=== PATIENT | female | born 1940 | race Caucasian/White ===

== ENCOUNTER 2016-03-09 21:50 | Inpatient (IN) | payer MEDICARE, BC ==
[2016-03-09] MEDS ORDERED: MAGNESIUM SULFATE-D5W PMX 1 GM in DEXTROSE/WATER 1 100ML.BAG IVPB STA (21:53)
[2016-03-09] MEDS ORDERED: IPRATROPIUM 0.5 MG/2.5 ML NEBU INHALATION STA (21:53)
[2016-03-09] MEDS ORDERED: SODIUM CHLORIDE 0.9% 1,000 ML IV STA (21:53)
[2016-03-09] MEDS ORDERED: EPINEPHrine 1 MG/ML 1 ML AMP SQ STA (21:53)
[2016-03-09] MEDS ORDERED: ALBUTEROL NEBULIZED 2.5 MG/3 ML INHALATION STA (21:53)
[2016-03-09] MEDS ORDERED: LORazepam 2 MG/ML SYRINGE IV STA (22:17)
[2016-03-09] MEDS: methylPREDNISolone SOD SUCCI 125 MG/2 ML VIAL IV STA ×2 (22:20→22:24)
--- NOTE | 2016-03-09 22:33 | XR ---
EXAMINATION TYPE: XR chest 1V portable DATE OF EXAM: 03/09/2016 10:19 PM COMPARISON: 01/23/2015 HISTORY: COPD, pneumonia TECHNIQUE: Single frontal view of the chest is obtained. FINDINGS: There is pulmonary hyperinflation and flattening of the diaphragm. There is no heart failu re nor confluent pneumonic infiltrate. There are no hilar masses. Thoracic aorta is atheromatous. The re is a tiny right pleural effusion. IMPRESSION: Small right pleural effusion is smaller than old exam. COPD. No evidence of bronchopneu monia.
[2016-03-09 22:34] LABS: Basophils # (A) 0.1 k/uL (0-0.2); Basophils % (A) 2 %; CH 31.5; CHCM 32.3; Eosinophils % (A) 1 %; HCT 44.9 % (34.0-46.0); HDW 2.37; HGB 14.4 gm/dL (11.4-16.0); Luc # (Auto) 0.21; Luc % (Auto) 3; Lymphocytes # (A) 1.7 k/uL (1.0-4.8); Lymphocytes % (A) 21 %; MCH 31.3 pg (25.0-35.0); MCV 97.9 fL (80.0-100.0); Mean Platelet Volume 8.4; Monocytes # (A) 0.8 k/uL (0-1.0); Monocytes % (A) 10 %; Neutrophils # (A) 5.5 k/uL (1.3-7.7); Neutrophils % (A) 65 %; RBC 4.59 m/uL (3.80-5.40); RDW 14.9 % (11.5-15.5); WBC 8.5 k/uL (3.8-10.6)
[2016-03-09 22:47] LABS: ABG Base Excess 7.8 mmol/L; ABG HCO3 34 mmol/L (21-25); ABG PCO2 64 mmHg (35-45); ABG PH 7.34 (7.35-7.45); ABG PO2 259 mmHg (83-108); ABG TCO2 36 mmol/L (19-24)
[2016-03-09 22:58] LABS: ALT 35 U/L (9-52); AST 36 U/L (14-36); Alkaline Phosphatase 57 U/L (38-126); Anion Gap 6 mmol/L; Blood Urea Nitrogen 20 mg/dL (7-17); Calcium 8.1 mg/dL (8.4-10.2); Carbon Dioxide 34 mmol/L (22-30); Chloride 92 mmol/L (98-107); Creatine Kinase 80 U/L (30-135); Glucose 120 mg/dL (74-99); Non-African American GFR(MDRD) >60 (>60 ml/min/1.73 sqM); Sodium 132 mmol/L (137-145); Total Bilirubin 0.4 mg/dL (0.2-1.3); Total Protein 6.2 g/dL (6.3-8.2)
[2016-03-09 23:10] LABS: Troponin I <0.012 ng/mL (0.000-0.034)
[2016-03-09 23:13] LABS: Prothrombin Time 10.3 sec (9.0-12.0)
[2016-03-09 23:17] LABS: Partial Thromboplastin Time 20.7 sec (22.0-30.0)
[2016-03-09 23:25] LABS: Creatine Kinase MB 5.9 ng/mL (0.0-2.4)
[2016-03-09 23:37] LABS: Potassium 4.6 mmol/L (3.5-5.1)
[2016-03-10] MEDS ORDERED: RX INFO: IV CONTRAST WAS GIVEN 1 EACH MISC MISCELLANE PRN (00:25)
[2016-03-10] MEDS ORDERED: SODIUM CHLORIDE 0.9% 500 ML IV ONE (00:37)
--- NOTE | 2016-03-10 00:37 | ED ---
SOB HPI - General Chief Complaint: Shortness of Breath Stated Complaint: EPIFANIO Time Seen by Provider: 03/09/16 21:53 Source: patient Mode of arrival: EMS Limitations: no limitations - History of Present Illness Initial Comments: Came in by ambulance, severe shortness of breath when she came in she couldn't even complete a sentence was retracting pretty severely using accessory muscles will put her on BiPAP at that helped a great deal she does have a history of COPD, she had the BiPAP on right away. Denies any chest pain does complain about some pain with deep breaths - Related Data Home Medications Medication Instructions Recorded Confirmed Atorvastatin [Lipitor] 10 mg PO HS 06/24/13 01/18/15 Omeprazole [PriLOSEC] 20 mg PO AC-BRKFST 06/24/13 01/18/15 LORazepam [Ativan] 0.5 mg PO BID PRN 04/20/14 01/18/15 Albuterol Sulfate [Proair Hfa] 2 puff INHALATION RT-Q6H PRN 01/18/15 01/18/15 Lisinopril [Zestril] 10 mg PO DAILY 01/18/15 01/18/15 Metoprolol Succinate [Toprol XL] 25 mg PO DAILY 01/18/15 01/18/15 PARoxetine HCL [Paxil] 20 mg PO BID 01/18/15 01/18/15 Phenazopyridine [Pyridium] 200 mg PO TID 01/18/15 01/18/15 Previous Rx's Medication Instructions Recorded Ipratropium-Albuterol Nebulize 3 ml INHALATION RT-QID PRN #100 09/06/14 [Duoneb 0.5 mg-3 mg/3 ml Soln] ampul.neb Levofloxacin [Levaquin] 500 mg PO DAILY #7 tab 01/23/15 predniSONE 10 mg PO DIRECTED #24 tab 01/23/15 Allergies Allergy/AdvReac Type Severity Reaction Status Date / Time Metronidazole HCl Allergy Severe Unknown Verified 03/09/16 21:58 [From Flagyl] Sulfa (Sulfonamide Allergy Severe Unknown Verified 03/09/16 21:58 Antibiotics) Review of Systems ROS Statement: Those systems with pertinent positive or pertinent negative responses have been documented in the HPI. ROS Other: All systems not noted in ROS Statement are negative. Past Medical History Past Medical History: Asthma, Cancer, Chest Pain / Angina, Heart Failure, COPD, GERD/Reflux, Hyperlipidemia, Hypertension, Osteoarthritis (OA), Pneumonia, Renal Disease, Sleep Apnea/CPAP/BIPAP Additional Past Medical History / Comment(s): C Diff IN 2011, Emphysema, bronchitis, bladder CA-CHEMO 2004, only one kidney, anxiety, PVD, DIVERTICULITIS , IBS, RENAL FAILURE, UTI,OSTEOPOROSIS,HOME 02 2 LITERS AT NIGHT. AORTIC ANEURYSM History of Any Multi-Drug Resistant Organisms: None Reported Past Surgical History: Tubal Ligation Additional Past Surgical History / Comment(s): D&C, toe surgery JANELLE FEET, colonoscopy, EGD, bronchoscopy, cataracts janelle, procedure for bladder sx. 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 Eye: Pupils are equal, round and reactive to light, extra-ocular movements are intact; there is normal conjunctiva bilaterally. Ears, nose, mouth and throat: There are moist mucous membranes and no oral lesions. Neck: The neck is supple, there is no tenderness Cardiovascular: It's irregularly irregular Respiratory: To auscultation bilateral, exam consistent with a severe COPD Gastrointestinal: Soft, non-distended, non-tender abdomen without masses or organomegaly noted. There is no rebound or guarding present. Bowel sounds are unremarkable. Back: There is no tenderness to palpation in the midline. There is no obvious deformity. Musculoskeletal: Normal ROM, no tenderness, There is no pedal edema. There is no calf tenderness or swelling. No cords were appreciated. Neurological: CN II-XII intact, Cranial nerves III through XII are intact. There are no obvious motor or sensory deficits. Coordination appears grossly intact. Speech is normal. Psychiatric: Cooperative. Limitations: no limitations Course Vital Signs 03/09/16 03/09/16 03/09/16 21:50 22:12 22:19 Temperature 97.6 F Pulse Rate 93 100 94 Respiratory 34 H 24 Rate Blood Pressure 213/100 155/81 O2 Sat by Pulse 94 L 100 Oximetry 03/09/16 03/09/16 03/09/16 22:45 22:48 23:31 Temperature Pulse Rate 104 H 106 H 97 Respiratory 18 Rate Blood Pressure 139/82 O2 Sat by Pulse 100 Oximetry 03/10/16 00:15 Temperature Pulse Rate 102 H Respiratory 20 Rate Blood Pressure 85/63 O2 Sat by Pulse 100 Oximetry QTc is at her atrial flutter ventricular rate is 95 VT interval, QRS duration 76 QT/QTc is 326/409, noticed some ST depression in lead 2 and 3 T-wave flattening in aVL, no ST elevation noticed in any of the leads Medical Decision Making - Lab Data Result diagrams: 03/09/16 22:04 03/09/16 22:04 Lab Results 03/09/16 03/09/16 03/09/16 Range/Units 22:04 22:04 22:04 WBC 8.5 (3.8-10.6) k/uL RBC 4.59 (3.80-5.40) m/uL Hgb 14.4 (11.4-16.0) gm/dL Hct 44.9 (34.0-46.0) % MCV 97.9 (80.0-100.0) fL MCH 31.3 (25.0-35.0) pg MCHC 32.0 (31.0-37.0) g/dL RDW 14.9 (11.5-15.5) % Plt Count 215 (150-450) k/uL Neutrophils % 65 % Lymphocytes % 21 % Monocytes % 10 % Eosinophils % 1 % Basophils % 2 % Neutrophils # 5.5 (1.3-7.7) k/uL Lymphocytes # 1.7 (1.0-4.8) k/uL Monocytes # 0.8 (0-1.0) k/uL Eosinophils # 0.0 (0-0.7) k/uL Basophils # 0.1 (0-0.2) k/uL PT 10.3 (9.0-12.0) sec INR 1.0 (<1.1) APTT 20.7 L (22.0-30.0) sec D-Dimer 5.54 H (<0.60) mg/L FEU Sample Site ABG pH (7.35-7.45) ABG pCO2 (35-45) mmHg ABG pO2 (83-108) mmHg ABG HCO3 (21-25) mmol/L ABG Total CO2 (19-24) mmol/L ABG O2 Saturation (94-97) % ABG Base Excess mmol/L FiO2 % Sodium 132 L (137-145) mmol/L Potassium 4.6 (3.5-5.1) mmol/L Chloride 92 L (98-107) mmol/L Carbon Dioxide 34 H (22-30) mmol/L Anion Gap 6 mmol/L BUN 20 H (7-17) mg/dL Creatinine 0.60 (0.52-1.04) mg/dL Est GFR (MDRD) Af Amer >60 (>60 ml/min/1.73 sqM) Est GFR (MDRD) Non-Af >60 (>60 ml/min/1.73 sqM) Glucose 120 H (74-99) mg/dL Calcium 8.1 L (8.4-10.2) mg/dL Total Bilirubin 0.4 (0.2-1.3) mg/dL AST 36 (14-36) U/L ALT 35 (9-52) U/L Alkaline Phosphatase 57 (38-126) U/L Total Creatine Kinase (30-135) U/L CK-MB (CK-2) (0.0-2.4) ng/mL CK-MB (CK-2) Rel Index Troponin I (0.000-0.034) ng/mL Total Protein 6.2 L (6.3-8.2) g/dL Albumin 3.5 (3.5-5.0) g/dL 03/09/16 03/09/16 Range/Units 22:04 22:30 WBC (3.8-10.6) k/uL RBC (3.80-5.40) m/uL Hgb (11.4-16.0) gm/dL Hct (34.0-46.0) % MCV (80.0-100.0) fL MCH (25.0-35.0) pg MCHC (31.0-37.0) g/dL RDW (11.5-15.5) % Plt Count (150-450) k/uL Neutrophils % % Lymphocytes % % Monocytes % % Eosinophils % % Basophils % % Neutrophils # (1.3-7.7) k/uL Lymphocytes # (1.0-4.8) k/uL Monocytes # (0-1.0) k/uL Eosinophils # (0-0.7) k/uL Basophils # (0-0.2) k/uL PT (9.0-12.0) sec INR (<1.1) APTT (22.0-30.0) sec D-Dimer (<0.60) mg/L FEU Sample Site rbrach ABG pH 7.34 L (7.35-7.45) ABG pCO2 64 H (35-45) mmHg ABG pO2 259 H (83-108) mmHg ABG HCO3 34 H (21-25) mmol/L ABG Total CO2 36 H (19-24) mmol/L ABG O2 Saturation 100.0 H (94-97) % ABG Base Excess 7.8 mmol/L FiO2 100 % Sodium (137-145) mmol/L Potassium (3.5-5.1) mmol/L Chloride (98-107) mmol/L Carbon Dioxide (22-30) mmol/L Anion Gap mmol/L BUN (7-17) mg/dL Creatinine (0.52-1.04) mg/dL Est GFR (MDRD) Af Amer (>60 ml/min/1.73 sqM) Est GFR (MDRD) Non-Af (>60 ml/min/1.73 sqM) Glucose (74-99) mg/dL Calcium (8.4-10.2) mg/dL Total Bilirubin (0.2-1.3) mg/dL AST (14-36) U/L ALT (9-52) U/L Alkaline Phosphatase (38-126) U/L Total Creatine Kinase 80 (30-135) U/L CK-MB (CK-2) 5.9 H* (0.0-2.4) ng/mL CK-MB (CK-2) Rel Index 7.4 Troponin I <0.012 (0.000-0.034) ng/mL Total Protein (6.3-8.2) g/dL Albumin (3.5-5.0) g/dL Critical Care Time Total Critical Care Time: 50 Critical Care Time: Shouldn't was numb so severely distressed when she came in she can give us a review of system she was put on a BiPAP ABGs were done and she had steroids she had a bronchodilators and cardiopulmonary workup d-dimer is elevated she be gone for her CT angiogram and he flipped and the EKG seems to be new old home EKG and no afebrile in aVL for active distress problems did not include the she will be gone and her Lovenox 1 mg/kg every 12 for now and will continue the inhaled steroids IV steroids and short and long-acting bronchodilators Disposition Clinical Impression: Respiratory distress, COPD, severe, Hypotension, Atrial fibrillation Disposition: ADMITTED IP TO THIS HOSP Condition: Fair
[2016-03-10] MEDS ORDERED: ENOXAPARIN 40 MG/0.4 ML SYRINGE SQ STA (00:44)
[2016-03-10] MEDS ORDERED: IPRATROPIUM-ALBUTEROL 3 ML NEB INHALATION PRN ×2 (00:45→00:56)
[2016-03-10] MEDS ORDERED: methylPREDNISolone SOD SUCCI 125 MG/2 ML VIAL IV STA (00:45)
[2016-03-10] MEDS ORDERED: ALBUTEROL INHALER 60 PUFF/8 GM INHALER INHALATION PRN (00:56)
[2016-03-10] MEDS ORDERED: ALBUTEROL NEBULIZED 2.5 MG/3 ML INHALATION PRN (01:02)
[2016-03-10] MEDS: ENOXAPARIN 40 MG/0.4 ML SYRINGE SQ SCH (01:39)
--- NOTE | 2016-03-10 01:56 | CT ---
EXAMINATION TYPE: CT angio chest DATE OF EXAM: 03/10/2016 1:16 AM COMPARISON: 04/18/2012 HISTORY: elevated d-dimer R/O PE, SOB CT DLP: 571.00 mGycm Automated exposure control for dose reduction was used. CONTRAST: CTA scan of the thorax is performed with IV Contrast, patient injected with 100 mL of Omnipaque 350, pulmonary embolism protocol. There are 3-D post processed images.. FINDINGS: There is aneurysm of the thoracic aorta. Ascending aorta measures 3.7 cm. Aorta measures 4.4 cm at th e diaphragm hiatus. There is thrombus in the lower descending thoracic aorta. There is atheroscleroti c plaque. Heart size is normal. I see no filling defects in the pulmonary arteries. There is diffuse pulmonary emphysema. There is no evidence of a pulmonary mass. There is no pleural effusion. IMPRESSION: EMPHYSEMA. NO EVIDENCE OF PULMONARY EMBOLISM. MILD PULMONARY FIBROTIC CHANGES. THERE IS ANEURYSM OF T HE LOWER THORACIC AND UPPER ABDOMINAL AORTA THAT HAS INCREASED COMPARED TO OLD CT SCAN. ANEURYSM IS I NCREASED FROM APPROXIMATELY 3.6 CM TO 4.4 CM AT THE DIAPHRAGM HIATUS. THERE IS CLEARING OF PULMONARY CONSOLIDATION AND ATELECTASIS IN THE LEFT LOWER LOBE COMPARED TO OLD EXAM.
[2016-03-10] MEDS: SODIUM CHLORIDE 0.9% 1,000 ML IV SCH ×3 (04:06→20:05)
[2016-03-10] MEDS: PANTOPRAZOLE 40 MG TABLET PO SCH (06:34)
[2016-03-10] MEDS ORDERED: ALBUTEROL NEBULIZED 2.5 MG/3 ML INHALATION SCH (08:00)
[2016-03-10] MEDS ORDERED: SYMBICORT 160-4.5 MCG INHALER INHALATION SCH (08:00)
[2016-03-10] MEDS ORDERED: LEVOFLOXACIN 500 MG TAB PO SCH ×2 (09:00)
[2016-03-10] MEDS ORDERED: LISINOPRIL 10 MG TAB PO SCH (09:00)
[2016-03-10] MEDS: BUDESONIDE 0.5 MG/2 ML NEBU INHALATION SCH ×2 (09:05→21:08)
[2016-03-10] MEDS: IPRATROPIUM-ALBUTEROL 3 ML NEB INHALATION SCH ×4 (09:05→21:07)
--- NOTE | 2016-03-10 09:30 | P.CRDCN ---
History of Present Illness Consult date: 03/10/16 Requesting physician: Faby Arana Reason for Consult (text): Arrhythmia Chief complaint: Shortness of breath History of present illness: This is a 76-year-old female with history of hypertension, nicotine dependence, COPD, asthma, sleep apnea, who presented to the hospital with progressively worsening shortness of breath. Patient was given some Ativan through the night last night, currently has a BiPAP on and is quite sleepy . Most of the history was obtained from the nurse and the medical record. There was question of a brief episode of atrial fibrillation while in the emergency room, no documentation of this is our, patient has been normal sinus rhythm here for that reason a cardiology consultation was requested. EKG on admission here showed a normal sinus rhythm with nonspecific ST-T wave changes. Rhythm strips all show normal sinus rhythm as well. Chest x-ray on admission shows a small right pleural effusion. COPD. CTA of the chest reveals emphysema with no evidence of a pulmonary embolism. Pulmonary fibrotic changes are noted. There is an aneurysm of the lower thoracic and upper abdominal aorta that is increased in size as compared with the old CAT scan. Aneurysm has increased from approximately 3.6 cm to 4.4 cm at the diaphragm hiatus. Blood pressure 114 /60, heart rate in the 90s. She is 99% on BiPAP. Laboratory data, CBC normal. D-dimer 5.5. ABGs were drawn, pH 7.34, pCO2 64, pO2 259, bicarb 34, total CO2 36, oxygen saturation 100. Potassium 4.6, BUN 20, creatinine 0.6. Troponin 0.012. Past Medical History Past Medical History: Asthma, Cancer, Chest Pain / Angina, Heart Failure, COPD, GERD/Reflux, Hyperlipidemia, Hypertension, Osteoarthritis (OA), Pneumonia, Renal Disease, Sleep Apnea/CPAP/BIPAP Additional Past Medical History / Comment(s): C Diff IN 2011, Emphysema, bronchitis, bladder CA-CHEMO 2004, only one kidney, anxiety, PVD, DIVERTICULITIS , IBS, RENAL FAILURE, UTI,OSTEOPOROSIS,HOME 02 2 LITERS AT NIGHT. AORTIC ANEURYSM History of Any Multi-Drug Resistant Organisms: None Reported Past Surgical History: Tubal Ligation Additional Past Surgical History / Comment(s): D&C, toe surgery JANELLE FEET, colonoscopy, EGD, bronchoscopy, cataracts janelle, procedure for bladder sx. 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[employer] USED TO DRINK HEAVILY FOR MANY YEARS NONE NOW Past Drug Use History: None Reported - Past Family History Mother Family Medical History: Myocardial Infarction ([place]) Father Family Medical History: Myocardial Infarction ([place]) Medications and Allergies Home Medications Medication Instructions Recorded Confirmed Type Atorvastatin [Lipitor] 10 mg PO HS 06/24/13 03/10/16 History Omeprazole [PriLOSEC] 20 mg PO AC-BRKFST 06/24/13 03/10/16 History LORazepam [Ativan] 0.5 mg PO BID PRN 04/20/14 03/10/16 History Albuterol Sulfate [Proair Hfa] 2 puff INHALATION RT-Q6H PRN 01/18/15 03/10/16 History Lisinopril [Zestril] 10 mg PO DAILY 01/18/15 03/10/16 History Metoprolol Succinate [Toprol XL] 25 mg PO DAILY 01/18/15 03/10/16 History PARoxetine HCL [Paxil] 20 mg PO BID 01/18/15 03/10/16 History Allergies Allergy/AdvReac Type Severity Reaction Status Date / Time Metronidazole HCl Allergy Severe Unknown Verified 03/09/16 21:58 [From Flagyl] Sulfa (Sulfonamide Allergy Severe Unknown Verified 03/09/16 21:58 Antibiotics) Physical Exam Vitals: Vital Signs Temp Pulse Pulse Resp BP BP Pulse Ox 03/10/16 09:05 86 03/10/16 04:00 94 16 114/62 99 03/10/16 02:10 96.6 F L 93 16 108/76 99 03/10/16 02:01 92 03/10/16 01:55 95 03/10/16 01:45 97 16 109/55 100 03/10/16 01:18 96.6 F L 93 108/76 99 Intake and Output 03/09/16 03/10/16 03/10/16 22:59 06:59 14:59 Intake Total 300 Balance 300 Intake: IV 300 Sodium Chloride 0.9% 1, 300 000 ml @ 100 mls/hr IV . Q10H LAURA Rx#:[id number] Other: Weight 40 kg PHYSICAL EXAMINATION: HEENT: Head is atraumatic, normocephalic. Pupils equal, round. Neck is supple. There is no elevated jugular venous pressure. HEART EXAMINATION: Heart S1, S2 normal. No murmur or gallop heard. CHEST EXAMINATION: Lungs reveal scattered coarse rhonchi with wheezing throughout, decreased air exchange throughout. ABDOMEN: Soft, nontender. Bowel sounds are heard. No organomegaly noted. EXTREMITIES: 1+ peripheral pulses with no evidence of peripheral edema and no calf tenderness noted. NEUROLOGIC [patient is very sleepy and difficult to arouse. Results 03/09/16 22:04 03/09/16 22:04 Current Medications Generic Name Dose Route Start Last Admin Trade Name Freq PRN Reason Stop Dose Admin Albuterol Sulfate 2.5 mg 03/10/16 01:02 Ventolin Nebulized INHALATION RT-Q6H PRN Shortness Of Breath Albuterol/Ipratropium 3 ml 03/10/16 08:00 03/10/16 09:05 Duoneb 0.5 Mg-3 Mg/3 Ml Soln INHALATION 3 ml RT-QID LAURA Administration Atorvastatin Calcium 10 mg 03/10/16 21:00 Lipitor PO HS LAURA Budesonide 0.5 mg 03/10/16 08:00 03/10/16 09:05 Pulmicort INHALATION 0.5 mg RT-BID LAURA Administration Enoxaparin Sodium 40 mg 03/10/16 21:00 03/10/16 01:39 Lovenox SQ 40 mg Q12HR LAURA Administration Sodium Chloride 1,000 mls @ 100 mls/hr 03/10/16 00:45 03/10/16 04:06 Saline 0.9% IV 100 mls/hr .Q10H LAURA Administration Levofloxacin 500 mg 03/10/16 09:00 Levaquin PO 03/17/16 09:01 DAILY LAURA Lisinopril 10 mg 03/10/16 09:00 Zestril PO DAILY LAURA Lorazepam 0.5 mg 03/10/16 00:56 Ativan PO BID PRN Agitation or Acute Anxiety Metoprolol Succinate 25 mg 03/10/16 09:00 Toprol Xl PO DAILY LAURA Miscellaneous Information 1 each 03/10/16 00:25 Rx Info: Iv Contrast Was Given MISCELLANE 03/12/16 00:25 DAILY PRN Per Protocol Pantoprazole Sodium 40 mg 03/10/16 07:30 03/10/16 06:34 Protonix PO Not Given AC-BRKFST [facility] Paroxetine HCl 20 mg 03/10/16 09:00 Paxil PO BID LAURA Phenazopyridine HCl 200 mg 03/10/16 09:00 Pyridium PO TID LAURA Intake and Output 03/09/16 03/10/16 03/10/16 22:59 06:59 14:59 Intake Total 300 Balance 300 Intake: IV 300 Sodium Chloride 0.9% 1, 300 000 ml @ 100 mls/hr IV . Q10H LAURA Rx#:[id number] Other: Weight 40 kg EKG Interpretations (text) EKG shows normal sinus rhythm nonspecific ST-T wave changes Assessment and Plan Plan: Assessment and plan #1 severe shortness of breath, suggestion of exacerbation of COPD. #2 normal d-dimer, CT of the chest negative for pulmonary embolism. #3 hypertension #4 hyperlipidemia #5 COPD history #6 nicotine dependence #7 history of prior EtOH abuse. #8 questionable arrhythmia, patient's initial EKG was read as atrial flutter, however is in normal sinus rhythm. No evidence of any atrial arrhythmias on rhythm strips. Plan We will perform an echocardiogram with Doppler study. Continue current medications. We'll follow this patient with you now on an as-needed basis only , please don't hesitate to call with any questions. DNP note has been reviewed, I agree with a documented findings and plan of care. Patient was seen and examined.
[2016-03-10 09:42] LABS: Basophils % (A) 0 %; CH 31.4; CHCM 31.5; Eosinophils % (A) 0 %; HCT 39.2 % (34.0-46.0); HDW 2.25; HGB 12.2 gm/dL (11.4-16.0); Luc # (Auto) 0.04; Luc % (Auto) 1; Lymphocytes # (A) 0.2 k/uL (1.0-4.8); Lymphocytes % (A) 5 %; MCH 31.2 pg (25.0-35.0); MCHC 31.1 g/dL (31.0-37.0); MCV 100.3 fL (80.0-100.0); Macrocytosis Slight; Mean Platelet Volume 7.7; Monocytes # (A) 0.1 k/uL (0-1.0); Monocytes % (A) 3 %; Neutrophils # (A) 4.9 k/uL (1.3-7.7); Neutrophils % (A) 92 %; RBC 3.91 m/uL (3.80-5.40); RDW 14.8 % (11.5-15.5); WBC 5.3 k/uL (3.8-10.6); WBC (Perox) 5.58
[2016-03-10 10:05] LABS: ALT 31 U/L (9-52); AST 28 U/L (14-36); Alkaline Phosphatase 47 U/L (38-126); Anion Gap 8 mmol/L; Blood Urea Nitrogen 25 mg/dL (7-17); Calcium 8.9 mg/dL (8.4-10.2); Carbon Dioxide 31 mmol/L (22-30); Chloride 91 mmol/L (98-107); Glucose 128 mg/dL (74-99); Non-African American GFR(MDRD) >60 (>60 ml/min/1.73 sqM); Potassium 5.6 mmol/L (3.5-5.1); Sodium 130 mmol/L (137-145); Total Bilirubin 0.3 mg/dL (0.2-1.3); Total Protein 5.7 g/dL (6.3-8.2)
[2016-03-10] MEDS ORDERED: SODIUM POLYSTYRENE SULFONATE 15 GM/60 ML BOTTLE PO STA (12:05)
--- NOTE | 2016-03-10 12:14 | P.HPIM ---
History of Present Illness H&P Date: 03/10/16 Chief Complaint: Worsening shortness of breath This is a 76-year-old female with a known past medical history of hypertension, nicotine dependence, COPD, sleep apnea and she does not wear her CPAP. She presents to the hospital worsening shortness of breath. Patient did receive Ativan and was placed on BiPAP. She's currently on the telemetry floor. There was concerns of a possible episode of atrial fibrillation while in the emergency room. Cardiology was consulted. There is no documentation of this. Patient is remained in normal sinus rhythm. EKG on admission and showed normal sinus rhythm with nonspecific ST-T wave changes and rhythm strips have been normal sinus rhythm. Cardiology had reviewed all of these. Chest x-ray on admission and showed a small right pleural effusion and COPD. CTA of the chest revealed emphysema with no evidence of pulmonary embolism. Pulmonary her biotic changes are noted. And there is abdominal aortic aneurysm that has increased in size from 3.6 cm to 4.4 cm. Patient remains on BiPAP and short notice of breath with talking. She denies any chest pain. Denies any nausea or vomiting. Has been having regular bowel movements. Denies any burning with urination. She does admit to a cough and was started on antibiotics. Also was placed on IV steroids for her COPD exacerbation. Review of Systems Please refer to HPI otherwise unremarkable Past Medical History Past Medical History: Asthma, Cancer, Chest Pain / Angina, Heart Failure, COPD, GERD/Reflux, Hyperlipidemia, Hypertension, Osteoarthritis (OA), Pneumonia, Renal Disease, Sleep Apnea/CPAP/BIPAP Additional Past Medical History / Comment(s): C Diff IN 2011, Emphysema, bronchitis, bladder CA-CHEMO 2004, only one kidney, anxiety, PVD, DIVERTICULITIS , IBS, RENAL FAILURE, UTI,OSTEOPOROSIS,HOME 02 2 LITERS AT NIGHT. AORTIC ANEURYSM History of Any Multi-Drug Resistant Organisms: None Reported Past Surgical History: Tubal Ligation Additional Past Surgical History / Comment(s): D&C, toe surgery JANELLE FEET, colonoscopy, EGD, bronchoscopy, cataracts janelle, procedure for bladder sx. 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 NONE NOW Past Drug Use History: None Reported - Past Family History Mother Family Medical History: Myocardial Infarction ([place]) Father Family Medical History: Myocardial Infarction ([place]) Medications and Allergies Home Medications Medication Instructions Recorded Confirmed Type Atorvastatin [Lipitor] 10 mg PO HS 06/24/13 03/10/16 History Omeprazole [PriLOSEC] 20 mg PO AC-BRKFST 06/24/13 03/10/16 History LORazepam [Ativan] 0.5 mg PO BID PRN 04/20/14 03/10/16 History Albuterol Sulfate [Proair Hfa] 2 puff INHALATION RT-Q6H PRN 01/18/15 03/10/16 History Lisinopril [Zestril] 10 mg PO DAILY 01/18/15 03/10/16 History Metoprolol Succinate [Toprol XL] 25 mg PO DAILY 01/18/15 03/10/16 History PARoxetine HCL [Paxil] 20 mg PO DAILY 01/18/15 03/10/16 History Allergies Allergy/AdvReac Type Severity Reaction Status Date / Time Metronidazole HCl Allergy Severe Unknown Verified 03/09/16 21:58 [From Flagyl] Sulfa (Sulfonamide Allergy Severe Unknown Verified 03/09/16 21:58 Antibiotics) Physical Exam Vitals: Vital Signs Temp Pulse Pulse Resp BP BP Pulse Ox 03/10/16 09:21 88 03/10/16 09:05 86 03/10/16 08:00 96.8 F L 77 98/60 100 03/10/16 04:00 94 16 114/62 99 03/10/16 02:10 96.6 F L 93 16 108/76 99 03/10/16 02:01 92 03/10/16 01:55 95 03/10/16 01:45 97 16 109/55 100 03/10/16 01:18 96.6 F L 93 108/76 99 Intake and Output 03/09/16 03/10/16 03/10/16 22:59 06:59 14:59 Intake Total 300 Balance 300 Intake: IV 300 Sodium Chloride 0.9% 1, 300 000 ml @ 100 mls/hr IV . Q10H [facility] Rx#:[id number] Other: Weight 40 kg Head normocephalic Neck supple Lungs diminished with wheezing bilaterally Heart regular rate and rhythm S1-S2, no rub or gallop Abdomen is soft nontender nondistended positive bowel sounds no hepatosplenomegaly Extremities no edema Neuro alert and orientated to 3 Results CBC & Chem 7: 03/10/16 09:22 03/10/16 09:22 Labs: Abnormal Lab Results - Last 24 Hours (Table) 03/10/16 03/10/16 Range/Units 09:22 09:22 MCV 100.3 H (80.0-100.0) fL Lymphocytes # 0.2 L (1.0-4.8) k/uL Sodium 130 L (137-145) mmol/L Potassium 5.6 H (3.5-5.1) mmol/L Chloride 91 L (98-107) mmol/L Carbon Dioxide 31 H (22-30) mmol/L BUN 25 H (7-17) mg/dL Glucose 128 H (74-99) mg/dL Total Protein 5.7 L (6.3-8.2) g/dL Albumin 3.3 L (3.5-5.0) g/dL Thrombosis Risk Factor Assmnt - Choose All That Apply Any of the Below Risk Factors Present?: No Other Risk Factors: Yes Each Risk Factor Represents 2 Points: Age 61-74 years, Patient confined to bed Thrombosis Risk Factor Assessment Total Risk Factor Score: 4 Thrombosis Risk Factor Assessment Level: Moderate Risk Assessment and Plan Plan: 1. Acute respiratory failure likely secondary to her COPD exacerbation. The patient is requiring BiPAP. Pulmonary service has been consulted 2. Acute COPD exacerbation: Continue nebulizer treatments and IV Solu-Medrol and continue Pulmicort. Pulmonary service consulted 3. Acute tracheobronchitis started on Levaquin. No evidence of pneumonia on chest x-ray 4. Elevated d-dimer on admission CT of the chest completed and negative for PE 5. Questionable atrial fibrillation in the emergency room. Seen evaluated by cardiology. There's been no documentation or evidence of atrial fibrillation. Continue telemetry monitoring. 6. Known history of abdominal aortic aneurysm there is a slight increase in size noted on CTA of the chest from 3.6 cm to 4.4 cm 7. Nicotine dependence discussed smoking cessation for proximally 5 minutes. Add nicotine patch 8. Hyponatremia present on admission sodium level CXXX continue with IV fluids 9. Hyperkalemia: we'll give Kayexalate. repeat labs in a.m., hold lisinopril. Potassium level of 5.6 10. DVT prophylaxis Lovenox and GI prophylaxis Protonix Time with Patient: Greater than 30 (Greater than 50% of the total time spent in counseling and coordination of care.I performed an examination of the patient and discussed their management with the physician Inserter. I have reviewed the Physician Inserter's notes and agree with the documented findings and plan of care)
[2016-03-10] MEDS: INSULIN LISPRO (humaLOG) 300 UNIT/3 ML VIAL SQ SCH ×3 (12:39→21:06)
--- NOTE | 2016-03-10 12:56 | ECHOF ---
Referral Reason:sob MEASUREMENTS -------- HEIGHT: 160.0 cm WEIGHT: 39.9 kg BP: 114/62 RVIDd: 2.8 cm (< 3.3) IVSd: 1.6 cm (0.6 - 1.1) LVIDd: 2.2 cm (3.9 - 5.3) LVPWd: 1.7 cm (0.6 - 1.1) IVSs: 2.0 cm LVIDs: 1.1 cm LVPWs: 1.9 cm Ao Diam: 3.0 cm (2.0 - 3.7) AV Cusp: 1.5 cm (1.5 - 2.6) LA Diam: 2.6 cm (2.7 - 3.8) MV EXCURSION: 11.714 mm (> 18.000) MV EF SLOPE: 56 mm/s (70 - 150) EPSS: 0.1 cm MV E Yung: 0.66 m/s MV DecT: 240 ms MV A Yung: 0.80 m/s MV E/A Ratio: 0.82 RAP: 5.00 mmHg RVSP: 27.88 mmHg FINDINGS -------- Sinus rhythm. Pt has severe COPD. Images taken from subcoastals. There is severe concentric left ventricular hypertrophy. Overall left ventricular systolic function is normal with, an EF between 55 - 60 %. The right ventricle is normal in size and function. The left atrium is normal in size. The right atrium is normal in size. Aortic valve is trileaflet and is mildly thickened. The mitral valve leaflets are mildly thickened. Mild mitral annular calcification present. Mild mitral regurgitation is present. Moderate tricuspid regurgitation present. The right ventricular systolic pressure, as measured by Doppler, is 27.88mmHg. Pulmonic valve appears structurally normal. The pericardium is normal. CONCLUSIONS -------- 1. Sinus rhythm. 2. Mild mitral annular calcification present. 3. Mild mitral regurgitation is present. 4. Moderate tricuspid regurgitation present. 5. The right ventricular systolic pressure, as measured by Doppler, is 27.88mmHg. 6. Pulmonic valve appears structurally normal. 7. The pericardium is normal. 8. Pt has severe COPD. Images taken from subcoastals. 9. There is severe concentric left ventricular hypertrophy. 10. Overall left ventricular systolic function is normal with, an EF between 55 - 60 %. 11. The right ventricle is normal in size and function. 12. The left atrium is normal in size. 13. The right atrium is normal in size. 14. Aortic valve is trileaflet and is mildly thickened. 15. The mitral valve leaflets are mildly thickened. RESIDENTIAL ROOFER: Sasha Freeman RDCS
--- NOTE | 2016-03-10 13:52 | P.CNPUL ---
History of Present Illness Consult date: 03/10/16 Requesting physician: Faby Arana Reason for consult: COPD Chief complaint: Shortness of breath History of present illness: This is a 76-year-old female, familiar to my service, I just saw her last week. Patient saw me for follow-up on her COPD, and she was doing surprisingly well at the time of her last evaluation. Patient is known to have severe end-stage COPD, she has a stage IV COPD, patient is O2 dependent, and she is prednisone responsive. She presented to the ER with mostly few days history of increased shortness of breath, cough and wheezing. CT of the chest on admission showed no evidence of pneumonia, and no evidence of pulmonary embolism. Upon admission there was a questionable brief episode of atrial fibrillation while in the ER, but no solid documentation noted on the rhythm strip while in the ER. 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 Upon my evaluation, the patient was feeling better, she was still on BiPAP, but much improved. No headaches no blurred vision no dizziness no cough no wheezing no shortness of breath no chest pain no nausea no vomiting no abdominal pain no melena and no hematemesis. No dysuria frequency or urgency. Review of Systems 14. Review of systems were obtained please refer to pertinent positives and negatives in HPI Past Medical History Past Medical History: Asthma, Cancer, Chest Pain / Angina, Heart Failure, COPD, GERD/Reflux, Hyperlipidemia, Hypertension, Osteoarthritis (OA), Pneumonia, Renal Disease, Sleep Apnea/CPAP/BIPAP Additional Past Medical History / Comment(s): C Diff IN 2011, Emphysema, bronchitis, bladder CA-CHEMO 2004, only one kidney, anxiety, PVD, DIVERTICULITIS , IBS, RENAL FAILURE, UTI,OSTEOPOROSIS,HOME 02 2 LITERS AT NIGHT. AORTIC ANEURYSM History of Any Multi-Drug Resistant Organisms: None Reported Past Surgical History: Tubal Ligation Additional Past Surgical History / Comment(s): D&C, toe surgery JANELLE FEET, colonoscopy, EGD, bronchoscopy, cataracts janelle, procedure for bladder sx. 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 Past Drug Use History: None Reported - Past Family History Mother Family Medical History: Myocardial Infarction ([place]) Father Family Medical History: Myocardial Infarction ([place]) Medications and Allergies Home Medications Medication Instructions Recorded Confirmed Type Atorvastatin [Lipitor] 10 mg PO HS 06/24/13 03/10/16 History Omeprazole [PriLOSEC] 20 mg PO AC-BRKFST 06/24/13 03/10/16 History LORazepam [Ativan] 0.5 mg PO BID PRN 04/20/14 03/10/16 History Albuterol Sulfate [Proair Hfa] 2 puff INHALATION RT-Q6H PRN 01/18/15 03/10/16 History Lisinopril [Zestril] 10 mg PO DAILY 01/18/15 03/10/16 History Metoprolol Succinate [Toprol XL] 25 mg PO DAILY 01/18/15 03/10/16 History PARoxetine HCL [Paxil] 20 mg PO DAILY 01/18/15 03/10/16 History Allergies Allergy/AdvReac Type Severity Reaction Status Date / Time Metronidazole HCl Allergy Severe Unknown Verified 03/09/16 21:58 [From Flagyl] Sulfa (Sulfonamide Allergy Severe Unknown Verified 03/09/16 21:58 Antibiotics) Physical Exam Vitals: Vital Signs Temp Pulse Pulse Resp BP BP Pulse Ox 03/10/16 12:42 84 03/10/16 12:30 84 03/10/16 12:00 81 111/61 100 03/10/16 09:21 88 03/10/16 09:05 86 03/10/16 08:00 96.8 F L 77 98/60 100 03/10/16 04:00 94 16 114/62 99 03/10/16 02:10 96.6 F L 93 16 108/76 99 03/10/16 02:01 92 03/10/16 01:55 95 03/10/16 01:45 97 16 109/55 100 03/10/16 01:18 96.6 F L 93 108/76 99 Intake and Output 03/09/16 03/10/16 03/10/16 22:59 06:59 14:59 Intake Total 300 Balance 300 Intake: IV 300 Sodium Chloride 0.9% 1, 300 000 ml @ 100 mls/hr IV . Q10H [facility] Rx#:[id number] Other: Weight 40 kg Physical Exam HEENT:[Neck is supple.] [No neck masses.] [No thyromegaly.] [No JVD.] Chest: [Diminished breath sound bilaterally no crackles or rhonchi or wheezes.] Cardiac Exam: [Normal S1 and S2, no S3 gallop, no murmur.] Abdomen: [Soft, nontender, no megaly, no rebound, no guarding, normal bowel sounds.] Extremities: [No clubbing, no edema, no cyanosis.] Neurological Exam: [No focal neurologic deficit.] Results - Laboratory Findings CBC and BMP: 03/10/16 09:22 03/10/16 09:22 ABG ABG pH 7.34 (7.35-7.45) L 03/09/16 22:30 ABG pCO2 64 mmHg (35-45) H 03/09/16 22:30 ABG pO2 259 mmHg (83-108) H 03/09/16 22:30 ABG O2 Saturation 100.0 % (94-97) H 03/09/16 22:30 PT/INR, D-dimer PT 10.3 sec (9.0-12.0) 03/09/16 22:04 INR 1.0 (<1.1) 03/09/16 22:04 D-Dimer 5.54 mg/L FEU (<0.60) H 03/09/16 22:04 Abnormal lab findings: Abnormal Labs 03/10/16 03/10/16 09:22 09:22 MCV 100.3 H Lymphocytes # 0.2 L Sodium 130 L Potassium 5.6 H Chloride 91 L Carbon Dioxide 31 H BUN 25 H Glucose 128 H Total Protein 5.7 L Albumin 3.3 L - Diagnostic Findings Chest x-ray: image reviewed CT scan - chest: image reviewed (Agree with reading as per radiology) Assessment and Plan Plan: Impression: Acute exacerbation of COPD Multiple comorbidities including history of hypertension, hyperlipidemia, tobacco dependence syndrome, questionable brief episode of atrial fibrillation. Recommendation: Agree with the present treatment plan, patient is presently on DuoNeb, Pulmicort updrafts, Levaquin, methylprednisolone, and she is on nicotine patch. Fully agree with the treatment plan, will continue to follow. Consider discharge planning in the next 48 hours. Time with Patient: Greater than 30
[2016-03-10] MEDS: PHENAZOPYRIDINE 200 MG TAB PO SCH ×2 (15:01→17:44)
[2016-03-10] MEDS: METOPROLOL SUCCINATE (ER) 25 MG TAB.ER.24H PO SCH (15:02)
[2016-03-10] MEDS: PARoxetine 20 MG TAB PO SCH ×2 (15:04→20:04)
[2016-03-10] MEDS: NICOTINE 21MG/24HR PATCH TRANSDERM SCH (15:05)
[2016-03-10 16:49] LABS: Glucose,Whole Blood 192 mg/dL (75-99)
[2016-03-10] MEDS: methylPREDNISolone SOD SUCCI 125 MG/2 ML VIAL IV SCH ×2 (18:26→23:15)
[2016-03-10] MEDS: ATORVASTATIN 10 MG TAB PO SCH (20:04)
--- NOTE | 2016-03-10 20:26 | CONS ---
DATE OF CONSULTATION: This is a 76-year-old female. Patient has been admitted with COPD. Patient is oxygen-dependent and on steroids. Patient had a CT of the chest which showed acute emphysema and there is a thoracic aneurysm and upper hiatus is 4.4. Past medical history of includes: 1. History of angina. 2. Heart failure. 3. COPD. 4. Hyperlipidemia. 5. Hypertension. 6. History of pneumonia. 7. History of renal disease. 8. Sleep apnea. On examination, neck is supple. CHEST: Patient has diminished breath sounds bilaterally. Normal first and second sounds. ABDOMEN: Soft. Femoral pulses are present. IMPRESSION: Patient has a thoracic aneurysm, 4.4 at this point. Aneurysm is small and is symptomatic. Patient has multiple comorbidities. She is not a good candidate for surgical intervention at this point. Patient is being treated medically for upper respiratory infection and emphysema.
[2016-03-10 21:00] LABS: Glucose,Whole Blood 165 mg/dL (75-99)
[2016-03-10] MEDS: LORazepam 0.5 MG TAB PO PRN (22:30)
[2016-03-11] MEDS: IPRATROPIUM-ALBUTEROL 3 ML NEB INHALATION PRN ×3 (04:49→23:38)
[2016-03-11] MEDS: SODIUM CHLORIDE 0.9% 1,000 ML IV SCH ×2 (04:55→14:38)
[2016-03-11 05:56] LABS: Glucose,Whole Blood 147 mg/dL (75-99)
[2016-03-11] MEDS: INSULIN LISPRO (humaLOG) 300 UNIT/3 ML VIAL SQ SCH ×4 (06:31→21:14)
[2016-03-11] MEDS: PANTOPRAZOLE 40 MG TABLET PO SCH (06:32)
[2016-03-11 07:35] LABS: ALT 48 U/L (9-52); AST 60 U/L (14-36); Alkaline Phosphatase 39 U/L (38-126); Anion Gap 7 mmol/L; Blood Urea Nitrogen 28 mg/dL (7-17); Calcium 8.6 mg/dL (8.4-10.2); Carbon Dioxide 31 mmol/L (22-30); Chloride 96 mmol/L (98-107); Glucose 127 mg/dL (74-99); Non-African American GFR(MDRD) >60 (>60 ml/min/1.73 sqM); Sodium 134 mmol/L (137-145); Total Bilirubin 0.5 mg/dL (0.2-1.3); Total Protein 5.9 g/dL (6.3-8.2)
[2016-03-11 07:59] LABS: Basophils % (A) 0 %; CH 31.3; CHCM 31.7; Eosinophils % (A) 0 %; HCT 38.4 % (34.0-46.0); HDW 2.34; HGB 12.2 gm/dL (11.4-16.0); Luc # (Auto) 0.08; Luc % (Auto) 1; Lymphocytes # (A) 0.3 k/uL (1.0-4.8); Lymphocytes % (A) 3 %; MCH 31.4 pg (25.0-35.0); MCHC 31.6 g/dL (31.0-37.0); MCV 99.2 fL (80.0-100.0); Macrocytosis Slight; Mean Platelet Volume 8.5; Monocytes # (A) 0.3 k/uL (0-1.0); Monocytes % (A) 4 %; Neutrophils # (A) 8.7 k/uL (1.3-7.7); Neutrophils % (A) 92 %; RBC 3.87 m/uL (3.80-5.40); RDW 14.9 % (11.5-15.5); WBC 9.5 k/uL (3.8-10.6); WBC (Perox) 8.91
[2016-03-11] MEDS: IPRATROPIUM-ALBUTEROL 3 ML NEB INHALATION SCH ×4 (08:18→20:19)
[2016-03-11] MEDS: BUDESONIDE 0.5 MG/2 ML NEBU INHALATION SCH ×2 (08:18→20:19)
[2016-03-11] MEDS ORDERED: LEVOFLOXACIN 250 MG TAB PO SCH (09:00)
[2016-03-11] MEDS: methylPREDNISolone SOD SUCCI 125 MG/2 ML VIAL IV SCH ×3 (09:06→22:44)
[2016-03-11] MEDS: ENOXAPARIN 40 MG/0.4 ML SYRINGE SQ SCH ×2 (09:22→21:07)
[2016-03-11] MEDS: NICOTINE 21MG/24HR PATCH TRANSDERM SCH (09:23)
[2016-03-11] MEDS: METOPROLOL SUCCINATE (ER) 25 MG TAB.ER.24H PO SCH (09:23)
[2016-03-11] MEDS: PARoxetine 20 MG TAB PO SCH ×2 (09:23→21:07)
[2016-03-11] MEDS: LORazepam 0.5 MG TAB PO PRN ×2 (09:23→21:09)
[2016-03-11] MEDS ORDERED: SODIUM POLYSTYRENE SULFONATE 15 GM/60 ML BOTTLE PO STA ×2 (10:00→13:44)
[2016-03-11] MEDS ORDERED: FUROSEMIDE 10 MG/ML 2 ML VIAL IV ONE (10:01)
--- NOTE | 2016-03-11 11:31 | P.PN ---
Subjective Principal diagnosis: Acute hypoxic and hypercapnic respiratory failure secondary to COPD exacerbation This is a 76-year-old female, familiar to my service, I just saw her last week. Patient saw me for follow-up on her COPD, and she was doing surprisingly well at the time of her last evaluation. Patient is known to have severe end-stage COPD, she has a stage IV COPD, patient is O2 dependent, and she is prednisone responsive. She presented to the ER with mostly few days history of increased shortness of breath, cough and wheezing. CT of the chest on admission showed no evidence of pneumonia, and no evidence of pulmonary embolism. Upon admission there was a questionable brief episode of atrial fibrillation while in the ER, but no solid documentation noted on the rhythm strip while in the ER. 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 Upon my evaluation, the patient was feeling better, she was still on BiPAP, but much improved. No headaches no blurred vision no dizziness no cough no wheezing no shortness of breath no chest pain no nausea no vomiting no abdominal pain no melena and no hematemesis. No dysuria frequency or urgency. Patient was reevaluated today on 03/11/2016, she is back on BiPAP today, and apparently she had an episode of hypoxia with desaturation earlier today, and she was quite anxious. Hence the patient was given Ativan, placed on BiPAP, and I saw her shortly after this, she seemed to have responded well to the Ativan and to the BiPAP. Feeling much better, breathing easier, and she seems to be more cooperative and very oriented 3. Potassium however was noted to be high at 6.0, and I believe most likely secondary to her underlying respiratory acidosis hence I recommended one dose of Kayexalate. Objective - Vital Signs Vital signs: Vital Signs Temp 96.3 F L 03/11/16 08:00 Pulse 112 H 03/11/16 09:30 Resp 23 03/11/16 09:30 BP 150/80 03/11/16 08:00 Pulse Ox 96 03/11/16 08:00 Intake & Output 03/10/16 03/11/16 03/11/16 18:59 06:59 18:59 Intake Total 800 1600 240 Balance 800 1600 240 Weight 40 kg 42.5 kg Intake: IV 1600 Sodium Chloride 0.9% 1, 1600 000 ml @ 100 mls/hr IV . Q10H [facility] Rx#:[id number] Intake, IV Titration 800 Amount Sodium Chloride 0.9% 1, 800 000 ml @ 100 mls/hr IV . Q10H [facility] Rx#:[id number] Oral 240 Other: Voiding Method Toilet - Exam HEENT:[Neck is supple.] [No neck masses.] [No thyromegaly.] [No JVD.] Chest: [Diminished breath sound bilaterally no crackles or rhonchi or wheezes.] Cardiac Exam: [Normal S1 and S2, no S3 gallop, no murmur.] Abdomen: [Soft, nontender, no megaly, no rebound, no guarding, normal bowel sounds.] Extremities: [No clubbing, no edema, no cyanosis.] Neurological Exam: [No focal neurologic deficit.] - Labs CBC & Chem 7: 03/11/16 06:09 03/11/16 06:09 Labs: Abnormal Lab Results - Last 24 Hours (Table) 03/10/16 03/10/16 03/11/16 Range/Units 16:47 20:58 05:55 Neutrophils # (1.3-7.7) k/uL Lymphocytes # (1.0-4.8) k/uL Sodium (137-145) mmol/L Potassium (3.5-5.1) mmol/L Chloride (98-107) mmol/L Carbon Dioxide (22-30) mmol/L BUN (7-17) mg/dL Glucose (74-99) mg/dL POC Glucose (mg/dL) 192 H 165 H 147 H (75-99) mg/dL AST (14-36) U/L Total Protein (6.3-8.2) g/dL Albumin (3.5-5.0) g/dL 03/11/16 03/11/16 Range/Units 06:09 06:09 Neutrophils # 8.7 H (1.3-7.7) k/uL Lymphocytes # 0.3 L (1.0-4.8) k/uL Sodium 134 L (137-145) mmol/L Potassium 6.0 H (3.5-5.1) mmol/L Chloride 96 L (98-107) mmol/L Carbon Dioxide 31 H (22-30) mmol/L BUN 28 H (7-17) mg/dL Glucose 127 H (74-99) mg/dL POC Glucose (mg/dL) (75-99) mg/dL AST 60 H (14-36) U/L Total Protein 5.9 L (6.3-8.2) g/dL Albumin 3.3 L (3.5-5.0) g/dL Assessment and Plan Plan: Impression: Acute exacerbation of COPD with acute on chronic hypoxic and hypercapnic respiratory failure. Multiple comorbidities including history of hypertension, hyperlipidemia, tobacco dependence syndrome, questionable brief episode of atrial fibrillation. Recommendation: Agree with the present treatment plan, patient is presently on DuoNeb, Pulmicort updrafts, Levaquin, methylprednisolone, and she is on nicotine patch. Fully agree with the treatment plan, will continue to follow. Continue BiPAP today, and intermittently the patient will be placed on nasal cannula, high flow if needed. We'll continue to follow. Time with Patient: Less than 30
[2016-03-11 11:57] LABS: Glucose,Whole Blood 228 mg/dL (75-99)
--- NOTE | 2016-03-11 13:13 | P.PN ---
Subjective Principal diagnosis: Acute exacerbation of chronic obstructive pulmonary disease Patient is more alert today she is still maintained on BiPAP she has removed her BiPAP mask several times with episodes of agitation without the BiPAP O2 sat duration was dropping down to the 70s and 80s range. She denies any chest pain there is minimal cough Objective - Vital Signs Vital signs: Vital Signs Temp 96 F L 03/11/16 11:37 Pulse 83 03/11/16 11:46 Resp 22 03/11/16 11:37 BP 150/94 03/11/16 11:37 Pulse Ox 96 03/11/16 08:00 Intake & Output 03/10/16 03/11/16 03/11/16 18:59 06:59 18:59 Intake Total 800 1600 240 Balance 800 1600 240 Weight 40 kg 42.5 kg Intake: IV 1600 Sodium Chloride 0.9% 1, 1600 000 ml @ 100 mls/hr IV . Q10H [facility] Rx#:[id number] Intake, IV Titration 800 Amount Sodium Chloride 0.9% 1, 800 000 ml @ 100 mls/hr IV . Q10H [facility] Rx#:[id number] Oral 240 Other: Voiding Method Toilet - Exam HEENT head normocephalic and atraumatic Neck is supple no jugular venous distention no goiter no lymphadenopathy Chest exam reveals distant respiratory sounds no crackles no wheezing Cardiac exam reveals regular heart sounds no murmurs Abdomen is soft nontender no organomegaly with normal bowel sounds Extremity exam reveals no edema no cyanosis or clubbing - Labs CBC & Chem 7: 03/11/16 06:09 03/11/16 06:09 Labs: Abnormal Lab Results - Last 24 Hours (Table) 03/10/16 03/10/16 03/11/16 Range/Units 16:47 20:58 05:55 Neutrophils # (1.3-7.7) k/uL Lymphocytes # (1.0-4.8) k/uL Sodium (137-145) mmol/L Potassium (3.5-5.1) mmol/L Chloride (98-107) mmol/L Carbon Dioxide (22-30) mmol/L BUN (7-17) mg/dL Glucose (74-99) mg/dL POC Glucose (mg/dL) 192 H 165 H 147 H (75-99) mg/dL AST (14-36) U/L Total Protein (6.3-8.2) g/dL Albumin (3.5-5.0) g/dL 03/11/16 03/11/16 03/11/16 Range/Units 06:09 06:09 11:49 Neutrophils # 8.7 H (1.3-7.7) k/uL Lymphocytes # 0.3 L (1.0-4.8) k/uL Sodium 134 L (137-145) mmol/L Potassium 6.0 H (3.5-5.1) mmol/L Chloride 96 L (98-107) mmol/L Carbon Dioxide 31 H (22-30) mmol/L BUN 28 H (7-17) mg/dL Glucose 127 H (74-99) mg/dL POC Glucose (mg/dL) 228 H (75-99) mg/dL AST 60 H (14-36) U/L Total Protein 5.9 L (6.3-8.2) g/dL Albumin 3.3 L (3.5-5.0) g/dL Assessment and Plan Plan: 1. Acute respiratory failure likely secondary to her COPD exacerbation. The patient is requiring BiPAP. Pulmonary service has been consulted 2. Acute COPD exacerbation: Continue nebulizer treatments and IV Solu-Medrol and continue Pulmicort. Pulmonary service consulted 3. Acute tracheobronchitis started on Levaquin. No evidence of pneumonia on chest x-ray 4. Elevated d-dimer on admission CT of the chest completed and negative for PE 5. Questionable atrial fibrillation in the emergency room. Seen evaluated by cardiology. There's been no documentation or evidence of atrial fibrillation. Continue telemetry monitoring. 6. Known history of abdominal aortic aneurysm there is a slight increase in size noted on CTA of the chest from 3.6 cm to 4.4 cm 7. Nicotine dependence discussed smoking cessation for proximally 5 minutes. Add nicotine patch 8. Hyponatremia present on admission sodium level CXXX continue with IV fluids 9. Hyperkalemia: we'll give Kayexalate. repeat labs in a.m., hold lisinopril. Potassium level of 6 patient has been refusing Kayexalate she was counseled in length
[2016-03-11 17:41] LABS: Glucose,Whole Blood 196 mg/dL (75-99)
[2016-03-11] MEDS: ATORVASTATIN 10 MG TAB PO SCH (21:07)
[2016-03-11 21:14] LABS: Glucose,Whole Blood 145 mg/dL (75-99)
[2016-03-11] MEDS ORDERED: hydrALAZINE HCL 20 MG/ML 1 ML VIAL IVP STA (22:59)
[2016-03-11] MEDS: LORazepam 2 MG/ML SYRINGE IV PRN (23:26)
[2016-03-11] MEDS ORDERED: PROPOFOL 50 ML IV ONE (23:54)
[2016-03-11 23:55] LABS: Glucose,Whole Blood 178 mg/dL (75-99)
[2016-03-12] MEDS ORDERED: NALOXONE 0.4 MG/ML 1 ML VIAL IV PRN (00:02)
[2016-03-12] MEDS ORDERED: fentaNYL (PF) 50 MCG/ML 2 ML AMP ONE (00:15)
[2016-03-12] MEDS ORDERED: ROCURONIUM BROMIDE 10 MG/ML 10 ML VIAL IV ONE (00:15)
[2016-03-12] MEDS ORDERED: PROPOFOL 10 MG/ML 20 ML VIAL IV ONE (00:15)
[2016-03-12] MEDS ORDERED: MIDAZOLAM (PF) 1 MG/ML 5 ML VIAL ONE (00:15)
--- NOTE | 2016-03-12 00:42 | XR ---
EXAMINATION TYPE: XR chest 1V portable DATE OF EXAM: 03/12/2016 12:27 AM COMPARISON: 03/09/2016 HISTORY: Difficulty in breathing postintubation NG tube placement. TECHNIQUE: Portable supine AP 2 radiographs were obtained at 12:17 AM hours, 03/12/2016. FINDINGS: ET tube is noted in place with its tip approximately 2 cm above the larry. NG tube is noted in place with its tip in the stomach area with draining hole in the distal esophagus and this NG tube has to be advanced at least by 10 cm into the stomach. There is no focal air space opacity, pleural effusion, or pneumothorax seen. Mild chronic lung pepper es are suggested bilaterally. The cardiac silhouette size is within normal limits. Atherosclerotic c alcification is noted in the aortic arch. The osseous structures are intact. IMPRESSION: 1. ET tube is noted in place with its tip 2 cm above the larry. 2. NG TUBE IS NOTED IN PLACE WITH ITS TIP IN THE FUNDUS AREA OF THE STOMACH. THIS NG TUBE HAS TO BE A DVANCED AT LEAST BY 10 CM INTO THE STOMACH. 3. Chronic lung changes.
[2016-03-12 00:50] LABS: ABG PCO2 76 mmHg (35-45); ABG PH 7.33 (7.35-7.45); ABG PO2 >420 mmHg (83-108); ABG TCO2 42 mmol/L (19-24)
[2016-03-12 01:05] LABS: Basophils % (A) 0 %; CH 31.3; CHCM 31.7; Eosinophils % (A) 0 %; HCT 36.3 % (34.0-46.0); HDW 2.32; HGB 11.2 gm/dL (11.4-16.0); Luc # (Auto) 0.07; Luc % (Auto) 1; Lymphocytes # (A) 0.2 k/uL (1.0-4.8); Lymphocytes % (A) 2 %; MCH 30.7 pg (25.0-35.0); MCHC 30.9 g/dL (31.0-37.0); MCV 99.2 fL (80.0-100.0); Macrocytosis Slight; Mean Platelet Volume 7.7; Monocytes # (A) 0.4 k/uL (0-1.0); Monocytes % (A) 4 %; Neutrophils # (A) 10.5 k/uL (1.3-7.7); Neutrophils % (A) 94 %; RBC 3.66 m/uL (3.80-5.40); WBC 11.2 k/uL (3.8-10.6); WBC (Perox) 10.89
[2016-03-12 01:14] LABS: Blood Urea Nitrogen 30 mg/dL (7-17); Calcium 8.4 mg/dL (8.4-10.2); Chloride 88 mmol/L (98-107); Glucose 153 mg/dL (74-99); Magnesium 1.6 mg/dL (1.6-2.3); Non-African American GFR(MDRD) >60 (>60 ml/min/1.73 sqM); Phosphorous 3.7 mg/dL (2.5-4.5); Potassium 3.9 mmol/L (3.5-5.1); Sodium 136 mmol/L (137-145)
[2016-03-12 01:20] LABS: Anion Gap 8 mmol/L
[2016-03-12 01:27] LABS: Carbon Dioxide 40 mmol/L (22-30)
[2016-03-12] MEDS: PROPOFOL 500 MG in EMPTY BAG 1 BAG IV SCH ×6 (02:26→17:07)
[2016-03-12] MEDS: SODIUM CHLORIDE 0.9% 1,000 ML IV SCH (02:31)
[2016-03-12 03:15] LABS: Appearance,Urine Clear (Clear); Bilirubin,Urine Negative (Negative); Glucose,Urine (UA) Negative (Negative); Ketones,Urine Negative (Negative); Leukocyte Esterase,Urine Negative (Negative); Nitrite,Urine Negative (Negative); PH, Urine 5.5 (5.0-8.0); Protein,Urine Negative (Negative); UA Billing (MACRO vs. MICRO) CHEM; Urobilinogen,Urine <2.0 mg/dL (<2.0)
[2016-03-12] MEDS: IPRATROPIUM-ALBUTEROL 3 ML NEB INHALATION PRN ×2 (03:29→23:56)
[2016-03-12 05:29] LABS: Basophils % (A) 0 %; CH 31.1; CHCM 31.5; Eosinophils % (A) 0 %; HCT 31.8 % (34.0-46.0); HDW 2.29; HGB 10.2 gm/dL (11.4-16.0); Luc # (Auto) 0.07; Luc % (Auto) 1; Lymphocytes # (A) 0.3 k/uL (1.0-4.8); Lymphocytes % (A) 3 %; MCH 31.8 pg (25.0-35.0); MCHC 32.1 g/dL (31.0-37.0); MCV 99.1 fL (80.0-100.0); Mean Platelet Volume 7.7; Monocytes # (A) 0.4 k/uL (0-1.0); Monocytes % (A) 4 %; Neutrophils # (A) 8.6 k/uL (1.3-7.7); Neutrophils % (A) 92 %; RBC 3.21 m/uL (3.80-5.40); RDW 14.7 % (11.5-15.5); WBC 9.3 k/uL (3.8-10.6); WBC (Perox) 9.78
[2016-03-12 05:39] LABS: ALT 126 U/L (9-52); AST 99 U/L (14-36); Alkaline Phosphatase 47 U/L (38-126); Blood Urea Nitrogen 30 mg/dL (7-17); Calcium 8.3 mg/dL (8.4-10.2); Chloride 88 mmol/L (98-107); Glucose 127 mg/dL (74-99); Magnesium 1.7 mg/dL (1.6-2.3); Non-African American GFR(MDRD) >60 (>60 ml/min/1.73 sqM); Phosphorous 2.4 mg/dL (2.5-4.5); Potassium 3.7 mmol/L (3.5-5.1); Sodium 134 mmol/L (137-145); Total Bilirubin 0.1 mg/dL (0.2-1.3); Total Protein 4.6 g/dL (6.3-8.2)
[2016-03-12 05:48] LABS: Anion Gap 5 mmol/L
[2016-03-12 05:55] LABS: Carbon Dioxide 41 mmol/L (22-30)
[2016-03-12] MEDS: MAGNESIUM SULFATE-D5W PMX 1 GM in DEXTROSE/WATER 1 100ML.BAG IVPB SCH ×2 (06:43→09:06)
[2016-03-12] MEDS ORDERED: POTASSIUM CHLORIDE ORAL LIQUID 40 MEQ/30 ML CUP NG-TUBE SCH (07:00)
[2016-03-12] MEDS: BUDESONIDE 0.5 MG/2 ML NEBU INHALATION SCH ×2 (07:50→19:45)
[2016-03-12] MEDS: IPRATROPIUM-ALBUTEROL 3 ML NEB INHALATION SCH ×4 (07:50→19:45)
--- NOTE | 2016-03-12 08:15 | XR ---
EXAMINATION TYPE: XR chest 1V portable DATE OF EXAM: 03/12/2016 6:56 AM CLINICAL HISTORY: Difficulty breathing progress study. TECHNIQUE: Single AP portable semiupright view of the chest is obtained. COMPARISON: Chest x-ray from one day earlier FINDINGS: An endotracheal tube and orogastric tube are stable in appearance. Consider advancing orog astric tube is side port is just above diaphragmatic hiatus. There is background of chronic emphysematous change without suspicious new focal airspace opacity, pl eural effusion, or pneumothorax seen bilaterally. Cardiac silhouette size is stable and within normal limits with atherosclerotic and ectatic thoracic aorta. Osseous structures are demineralized. IMPRESSION: Overall stable findings, chronic emphysematous change without acute pulmonary process.
[2016-03-12] MEDS ORDERED: LEVOFLOXACIN 500 MG TAB PO SCH (09:00)
[2016-03-12] MEDS: METOPROLOL SUCCINATE (ER) 25 MG TAB.ER.24H PO SCH (09:07)
[2016-03-12] MEDS: ENOXAPARIN 40 MG/0.4 ML SYRINGE SQ SCH (09:08)
[2016-03-12] MEDS: NICOTINE 21MG/24HR PATCH TRANSDERM SCH (09:09)
[2016-03-12] MEDS: methylPREDNISolone SOD SUCCI 125 MG/2 ML VIAL IV SCH ×2 (09:09→15:28)
[2016-03-12 09:10] LABS: Glucose,Whole Blood 135 mg/dL (75-99)
[2016-03-12] MEDS: PANTOPRAZOLE 40 MG/10 ML VIAL IV SCH (09:10)
[2016-03-12] MEDS: PARoxetine 20 MG TAB PO SCH ×2 (09:14→20:22)
[2016-03-12 09:23] LABS: ABG HCO3 38 mmol/L (21-25); ABG PCO2 58 mmHg (35-45); ABG PH 7.44 (7.35-7.45); ABG PO2 133 mmHg (83-108)
[2016-03-12 09:24] LABS: ABG TCO2 40 mmol/L (19-24)
[2016-03-12] MEDS: INSULIN LISPRO (humaLOG) 300 UNIT/3 ML VIAL SQ SCH ×4 (10:24→20:22)
[2016-03-12] MEDS: CHLORHEXIDINE GLUCONATE 15 ML CUP MUCOUS MEM SCH ×2 (10:25→20:22)
[2016-03-12] MEDS: HEPARIN SODIUM,PORCINE 5,000 UNIT/ML 1 ML VIAL SQ SCH ×2 (11:00→15:25)
[2016-03-12] MEDS: LEVOFLOXACIN 500MG-D5W PMX 500 MG in DEXTROSE/WATER 1 100ML.BAG IVPB SCH (11:03)
[2016-03-12 12:06] LABS: Glucose,Whole Blood 134 mg/dL (75-99)
--- NOTE | 2016-03-12 14:01 | P.PN ---
Subjective Principal diagnosis: Acute hypoxic and hypercapnic respiratory failure secondary to COPD exacerbation This is a 76-year-old female, familiar to my service, I just saw her last week. Patient saw me for follow-up on her COPD, and she was doing surprisingly well at the time of her last evaluation. Patient is known to have severe end-stage COPD, she has a stage IV COPD, patient is O2 dependent, and she is prednisone responsive. She presented to the ER with mostly few days history of increased shortness of breath, cough and wheezing. CT of the chest on admission showed no evidence of pneumonia, and no evidence of pulmonary embolism. Upon admission there was a questionable brief episode of atrial fibrillation while in the ER, but no solid documentation noted on the rhythm strip while in the ER. 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 Upon my evaluation, the patient was feeling better, she was still on BiPAP, but much improved. No headaches no blurred vision no dizziness no cough no wheezing no shortness of breath no chest pain no nausea no vomiting no abdominal pain no melena and no hematemesis. No dysuria frequency or urgency. Patient was reevaluated today on 03/11/2016, she is back on BiPAP today, and apparently she had an episode of hypoxia with desaturation earlier today, and she was quite anxious. Hence the patient was given Ativan, placed on BiPAP, and I saw her shortly after this, she seemed to have responded well to the Ativan and to the BiPAP. Feeling much better, breathing easier, and she seems to be more cooperative and very oriented 3. Potassium however was noted to be high at 6.0, and I believe most likely secondary to her underlying respiratory acidosis hence I recommended one dose of Kayexalate. Patient was reevaluated today on 03/12/2016, apparently last night, patient took a downhill course and she developed what seemed to be a picture of worsening hypoxic and hypercapnic respiratory failure. Patient was not responding to BiPAP, and she was getting extremely agitated, and she was in severe respiratory distress. I was notified about the patient, hence I recommended immediate intubation and transferred to the ICU. Patient is now in the intensive care unit, on assist control mechanical mode of ventilation, she is on a tidal volume of 300, FiO2 is 40%, and assist control rate of 10. Chest x- ray showed endotracheal tube to be in adequate position, nasogastric tube is also on the proper position, and her chest x-ray showed chronic lung changes. Labs were reviewed and her ABG showed a pO2 of 133 pCO2 of 58 pH of 7.44. Basic metabolic profile is normal, bicarb as expected is 41. Patient will have nutritional support today, and we'll start feeding via nasogastric tube. Objective - Vital Signs Vital signs: Vital Signs Temp 98.1 F 03/12/16 12:00 Pulse 84 03/12/16 13:00 Resp 15 03/12/16 13:00 BP 112/63 03/12/16 02:00 Pulse Ox 100 03/12/16 13:00 Intake & Output 03/11/16 03/12/16 03/12/16 18:59 06:59 18:59 Intake Total 740 970.00 193.929 Output Total 450 620 495 Balance 290 350.00 -301.071 Weight 42.5 kg 42.5 kg Intake: IV 300 800 Sodium Chloride 0.9% 1, 300 800 000 ml @ 100 mls/hr IV . Q10H [facility] Rx#:[id number] Intake, IV Titration 170.00 193.929 Amount Magnesium Sulfate-D5w Pmx 100 1 gm In Dextrose/Water 1 100ml.bag @ 100 mls/hr IVPB Q1H [facility] Rx#: [id number] Propofol 500 mg In Empty 50.00 93.929 Bag 1 bag @ Titrate IV . Q0M [facility] Rx#:[id number] Sodium Chloride 0.9% 1, 120 000 ml @ 20 mls/hr IV . Q24H [facility] Rx#:[id number] Oral 440 0 Output: Urine 450 620 495 Other: Voiding Method Bedpan Bedpan Bedpan ABP, PAP, CO, CI - Last Documented Arterial Blood Pressure 101/54 - Exam HEENT:[Neck is supple.] [No neck masses.] [No thyromegaly.] [No JVD.] Endotracheal tube and nasogastric tube are intact. Chest: [Diminished breath sound bilaterally no crackles or rhonchi or wheezes.] Cardiac Exam: [Normal S1 and S2, no S3 gallop, no murmur.] Abdomen: [Soft, nontender, no megaly, no rebound, no guarding, normal bowel sounds.] Extremities: [No clubbing, no edema, no cyanosis.] Neurological Exam: [Cannot be assessed, patient is sedated on propofol. - Labs CBC & Chem 7: 03/12/16 05:07 03/12/16 05:07 Labs: Abnormal Lab Results - Last 24 Hours (Table) 03/11/16 03/11/16 03/11/16 Range/Units 17:04 21:12 23:53 WBC (3.8-10.6) k/uL RBC (3.80-5.40) m/uL Hgb (11.4-16.0) gm/dL Hct (34.0-46.0) % MCHC (31.0-37.0) g/dL Neutrophils # (1.3-7.7) k/uL Lymphocytes # (1.0-4.8) k/uL ABG pH (7.35-7.45) ABG pCO2 (35-45) mmHg ABG pO2 (83-108) mmHg ABG HCO3 (21-25) mmol/L ABG Total CO2 (19-24) mmol/L ABG O2 Saturation (94-97) % Sodium (137-145) mmol/L Chloride (98-107) mmol/L Carbon Dioxide (22-30) mmol/L BUN (7-17) mg/dL Glucose (74-99) mg/dL POC Glucose (mg/dL) 196 H 145 H 178 H (75-99) mg/dL Calcium (8.4-10.2) mg/dL Phosphorus (2.5-4.5) mg/dL Total Bilirubin (0.2-1.3) mg/dL AST (14-36) U/L ALT (9-52) U/L Total Protein (6.3-8.2) g/dL Albumin (3.5-5.0) g/dL 03/12/16 03/12/16 03/12/16 Range/Units 00:39 00:45 00:45 WBC 11.2 H (3.8-10.6) k/uL RBC 3.66 L (3.80-5.40) m/uL Hgb 11.2 L (11.4-16.0) gm/dL Hct (34.0-46.0) % MCHC 30.9 L (31.0-37.0) g/dL Neutrophils # 10.5 H (1.3-7.7) k/uL Lymphocytes # 0.2 L (1.0-4.8) k/uL ABG pH 7.33 L (7.35-7.45) ABG pCO2 76 H* (35-45) mmHg ABG pO2 >420 H (83-108) mmHg ABG HCO3 40 H* (21-25) mmol/L ABG Total CO2 42 H (19-24) mmol/L ABG O2 Saturation 100.0 H (94-97) % Sodium 136 L (137-145) mmol/L Chloride 88 L (98-107) mmol/L Carbon Dioxide 40 H* (22-30) mmol/L BUN 30 H (7-17) mg/dL Glucose 153 H (74-99) mg/dL POC Glucose (mg/dL) (75-99) mg/dL Calcium (8.4-10.2) mg/dL Phosphorus (2.5-4.5) mg/dL Total Bilirubin (0.2-1.3) mg/dL AST (14-36) U/L ALT (9-52) U/L Total Protein (6.3-8.2) g/dL Albumin (3.5-5.0) g/dL 03/12/16 03/12/16 03/12/16 Range/Units 05:07 05:07 09:08 WBC (3.8-10.6) k/uL RBC 3.21 L (3.80-5.40) m/uL Hgb 10.2 L (11.4-16.0) gm/dL Hct 31.8 L (34.0-46.0) % MCHC (31.0-37.0) g/dL Neutrophils # 8.6 H (1.3-7.7) k/uL Lymphocytes # 0.3 L (1.0-4.8) k/uL ABG pH (7.35-7.45) ABG pCO2 (35-45) mmHg ABG pO2 (83-108) mmHg ABG HCO3 (21-25) mmol/L ABG Total CO2 (19-24) mmol/L ABG O2 Saturation (94-97) % Sodium 134 L (137-145) mmol/L Chloride 88 L (98-107) mmol/L Carbon Dioxide 41 H* (22-30) mmol/L BUN 30 H (7-17) mg/dL Glucose 127 H (74-99) mg/dL POC Glucose (mg/dL) 135 H (75-99) mg/dL Calcium 8.3 L (8.4-10.2) mg/dL Phosphorus 2.4 L (2.5-4.5) mg/dL Total Bilirubin 0.1 L (0.2-1.3) mg/dL AST 99 H (14-36) U/L ALT 126 H (9-52) U/L Total Protein 4.6 L (6.3-8.2) g/dL Albumin 2.7 L (3.5-5.0) g/dL 03/12/16 03/12/16 Range/Units 09:10 12:04 WBC (3.8-10.6) k/uL RBC (3.80-5.40) m/uL Hgb (11.4-16.0) gm/dL Hct (34.0-46.0) % MCHC (31.0-37.0) g/dL Neutrophils # (1.3-7.7) k/uL Lymphocytes # (1.0-4.8) k/uL ABG pH (7.35-7.45) ABG pCO2 58 H (35-45) mmHg ABG pO2 133 H (83-108) mmHg ABG HCO3 38 H (21-25) mmol/L ABG Total CO2 40 H (19-24) mmol/L ABG O2 Saturation 99.0 H (94-97) % Sodium (137-145) mmol/L Chloride (98-107) mmol/L Carbon Dioxide (22-30) mmol/L BUN (7-17) mg/dL Glucose (74-99) mg/dL POC Glucose (mg/dL) 134 H (75-99) mg/dL Calcium (8.4-10.2) mg/dL Phosphorus (2.5-4.5) mg/dL Total Bilirubin (0.2-1.3) mg/dL AST (14-36) U/L ALT (9-52) U/L Total Protein (6.3-8.2) g/dL Albumin (3.5-5.0) g/dL Microbiology - Last 24 Hours (Table) 03/12/16 01:50 Sputum Culture - Preliminary Sputum Assessment and Plan Plan: Impression: Acute on chronic hypoxic and hypercapnic respiratory failure, failed BiPAP, patient is now on mechanical ventilation. Multiple comorbidities including history of hypertension, hyperlipidemia, tobacco dependence syndrome, questionable brief episode of atrial fibrillation. Recommendation: After evaluating the patient in the ICU, I discussed her condition with her daughters at bedside, family is agreeable with a full CODE STATUS for now, however if it comes to the point where the patient needs to have a tracheostomy or prolonged term of mechanical ventilation, they would be willing to consider comfort care measures. In the meantime patient is full code , and we'll continue to follow closely. Critical care Time is 40 minutes. Time with Patient: Greater than 30
[2016-03-12 14:31] LABS: Magnesium 2.5 mg/dL (1.6-2.3); Potassium 4.3 mmol/L (3.5-5.1)
[2016-03-12 15:09] VITALS: BP 112/62
[2016-03-12 17:30] LABS: Glucose,Whole Blood 140 mg/dL (75-99)
--- NOTE | 2016-03-12 18:47 | P.PN ---
Subjective Principal diagnosis: Acute exacerbation of chronic obstructive pulmonary disease, with acute respiratory failure Patient is currently admitted to intensive care unit she is intubated sedated maintained on mechanical ventilation she had an episode of severe agitation was acute hypoxic and hypercapnic respiratory failure she was not responding to BiPAP she was transferred to ICU and was intubated through the night. Objective - Vital Signs Vital signs: Vital Signs Temp 98.1 F 03/12/16 12:00 Pulse 90 03/12/16 18:00 Resp 16 03/12/16 18:00 BP 112/62 03/12/16 16:00 Pulse Ox 98 03/12/16 18:00 Intake & Output 03/11/16 03/12/16 03/12/16 18:59 06:59 18:59 Intake Total 740 970.00 271.130 Output Total 450 620 895 Balance 290 350.00 -623.870 Weight 42.5 kg 42.5 kg Intake: IV 300 800 Sodium Chloride 0.9% 1, 300 800 000 ml @ 100 mls/hr IV . Q10H [facility] Rx#:[id number] Intake, IV Titration 170.00 241.130 Amount Magnesium Sulfate-D5w Pmx 100 1 gm In Dextrose/Water 1 100ml.bag @ 100 mls/hr IVPB Q1H [facility] Rx#: [id number] Propofol 500 mg In Empty 50.00 141.130 Bag 1 bag @ Titrate IV . Q0M [facility] Rx#:[id number] Sodium Chloride 0.9% 1, 120 000 ml @ 20 mls/hr IV . Q24H [facility] Rx#:[id number] Oral 440 0 Tube Feeding 30 Output: Urine 450 620 895 Other: Voiding Method Bedpan Bedpan Bedpan ABP, PAP, CO, CI - Last Documented Arterial Blood Pressure 123/58 - Exam HEENT head normocephalic and atraumatic Neck is supple no jugular venous distention no goiter no lymphadenopathy Chest exam reveals distant respiratory sounds no crackles no wheezing Cardiac exam reveals regular heart sounds no murmurs Abdomen is soft nontender no organomegaly with normal bowel sounds Extremity exam reveals no edema no cyanosis or clubbing - Labs CBC & Chem 7: 03/12/16 05:07 03/12/16 14:00 Labs: Abnormal Lab Results - Last 24 Hours (Table) 03/11/16 03/11/16 03/12/16 Range/Units 21:12 23:53 00:39 WBC (3.8-10.6) k/uL RBC (3.80-5.40) m/uL Hgb (11.4-16.0) gm/dL Hct (34.0-46.0) % MCHC (31.0-37.0) g/dL Neutrophils # (1.3-7.7) k/uL Lymphocytes # (1.0-4.8) k/uL ABG pH 7.33 L (7.35-7.45) ABG pCO2 76 H* (35-45) mmHg ABG pO2 >420 H (83-108) mmHg ABG HCO3 40 H* (21-25) mmol/L ABG Total CO2 42 H (19-24) mmol/L ABG O2 Saturation 100.0 H (94-97) % Sodium (137-145) mmol/L Chloride (98-107) mmol/L Carbon Dioxide (22-30) mmol/L BUN (7-17) mg/dL Glucose (74-99) mg/dL POC Glucose (mg/dL) 145 H 178 H (75-99) mg/dL Calcium (8.4-10.2) mg/dL Phosphorus (2.5-4.5) mg/dL Magnesium (1.6-2.3) mg/dL Total Bilirubin (0.2-1.3) mg/dL AST (14-36) U/L ALT (9-52) U/L Total Protein (6.3-8.2) g/dL Albumin (3.5-5.0) g/dL 03/12/16 03/12/16 03/12/16 Range/Units 00:45 00:45 05:07 WBC 11.2 H (3.8-10.6) k/uL RBC 3.66 L 3.21 L (3.80-5.40) m/uL Hgb 11.2 L 10.2 L (11.4-16.0) gm/dL Hct 31.8 L (34.0-46.0) % MCHC 30.9 L (31.0-37.0) g/dL Neutrophils # 10.5 H 8.6 H (1.3-7.7) k/uL Lymphocytes # 0.2 L 0.3 L (1.0-4.8) k/uL ABG pH (7.35-7.45) ABG pCO2 (35-45) mmHg ABG pO2 (83-108) mmHg ABG HCO3 (21-25) mmol/L ABG Total CO2 (19-24) mmol/L ABG O2 Saturation (94-97) % Sodium 136 L (137-145) mmol/L Chloride 88 L (98-107) mmol/L Carbon Dioxide 40 H* (22-30) mmol/L BUN 30 H (7-17) mg/dL Glucose 153 H (74-99) mg/dL POC Glucose (mg/dL) (75-99) mg/dL Calcium (8.4-10.2) mg/dL Phosphorus (2.5-4.5) mg/dL Magnesium (1.6-2.3) mg/dL Total Bilirubin (0.2-1.3) mg/dL AST (14-36) U/L ALT (9-52) U/L Total Protein (6.3-8.2) g/dL Albumin (3.5-5.0) g/dL 03/12/16 03/12/16 03/12/16 Range/Units 05:07 09:08 09:10 WBC (3.8-10.6) k/uL RBC (3.80-5.40) m/uL Hgb (11.4-16.0) gm/dL Hct (34.0-46.0) % MCHC (31.0-37.0) g/dL Neutrophils # (1.3-7.7) k/uL Lymphocytes # (1.0-4.8) k/uL ABG pH (7.35-7.45) ABG pCO2 58 H (35-45) mmHg ABG pO2 133 H (83-108) mmHg ABG HCO3 38 H (21-25) mmol/L ABG Total CO2 40 H (19-24) mmol/L ABG O2 Saturation 99.0 H (94-97) % Sodium 134 L (137-145) mmol/L Chloride 88 L (98-107) mmol/L Carbon Dioxide 41 H* (22-30) mmol/L BUN 30 H (7-17) mg/dL Glucose 127 H (74-99) mg/dL POC Glucose (mg/dL) 135 H (75-99) mg/dL Calcium 8.3 L (8.4-10.2) mg/dL Phosphorus 2.4 L (2.5-4.5) mg/dL Magnesium (1.6-2.3) mg/dL Total Bilirubin 0.1 L (0.2-1.3) mg/dL AST 99 H (14-36) U/L ALT 126 H (9-52) U/L Total Protein 4.6 L (6.3-8.2) g/dL Albumin 2.7 L (3.5-5.0) g/dL 03/12/16 03/12/16 03/12/16 Range/Units 12:04 14:00 17:29 WBC (3.8-10.6) k/uL RBC (3.80-5.40) m/uL Hgb (11.4-16.0) gm/dL Hct (34.0-46.0) % MCHC (31.0-37.0) g/dL Neutrophils # (1.3-7.7) k/uL Lymphocytes # (1.0-4.8) k/uL ABG pH (7.35-7.45) ABG pCO2 (35-45) mmHg ABG pO2 (83-108) mmHg ABG HCO3 (21-25) mmol/L ABG Total CO2 (19-24) mmol/L ABG O2 Saturation (94-97) % Sodium (137-145) mmol/L Chloride (98-107) mmol/L Carbon Dioxide (22-30) mmol/L BUN (7-17) mg/dL Glucose (74-99) mg/dL POC Glucose (mg/dL) 134 H 140 H (75-99) mg/dL Calcium (8.4-10.2) mg/dL Phosphorus (2.5-4.5) mg/dL Magnesium 2.5 H (1.6-2.3) mg/dL Total Bilirubin (0.2-1.3) mg/dL AST (14-36) U/L ALT (9-52) U/L Total Protein (6.3-8.2) g/dL Albumin (3.5-5.0) g/dL Microbiology - Last 24 Hours (Table) 03/12/16 01:50 Gram Stain - Preliminary Sputum Sputum Culture - Preliminary Assessment and Plan Plan: 1. Acute respiratory failure likely secondary to her COPD exacerbation. The patient currently is in ICU she is intubated and maintained on mechanical ventilation. Pulmonary service are following. 2. Acute COPD exacerbation: Continue nebulizer treatments and IV Solu-Medrol and continue Pulmicort. Pulmonary service consulted 3. Acute tracheobronchitis started on Levaquin. No evidence of pneumonia on chest x-ray 4. Elevated d-dimer on admission CT of the chest completed and negative for PE 5. Questionable atrial fibrillation in the emergency room. Seen evaluated by cardiology. There's been no documentation or evidence of atrial fibrillation. Continue telemetry monitoring. 6. Known history of abdominal aortic aneurysm there is a slight increase in size noted on CTA of the chest from 3.6 cm to 4.4 cm 7. Nicotine dependence discussed smoking cessation for proximally 5 minutes. Add nicotine patch 8. Hyponatremia present on admission Prognosis is guarded due to advanced lung disease Will monitor closely
[2016-03-12 20:22] LABS: Glucose,Whole Blood 132 mg/dL (75-99)
[2016-03-12] MEDS: ATORVASTATIN 10 MG TAB PO SCH (20:22)
[2016-03-13 00:39] LABS: Glucose,Whole Blood 174 mg/dL (75-99)
[2016-03-13] MEDS: HEPARIN SODIUM,PORCINE 5,000 UNIT/ML 1 ML VIAL SQ SCH ×5 (00:44→23:09)
[2016-03-13] MEDS: methylPREDNISolone SOD SUCCI 125 MG/2 ML VIAL IV SCH ×4 (00:45→23:09)
[2016-03-13] MEDS: SODIUM CHLORIDE 0.9% 1,000 ML IV SCH ×2 (00:46→23:09)
[2016-03-13] MEDS: PROPOFOL 500 MG in EMPTY BAG 1 BAG IV SCH ×6 (01:45→23:08)
[2016-03-13 03:35] LABS: Basophils # (A) 0.1 k/uL (0-0.2); Basophils % (A) 1 %; CH 31.3; Eosinophils % (A) 0 %; HCT 32.4 % (34.0-46.0); HDW 2.28; HGB 10.2 gm/dL (11.4-16.0); Luc # (Auto) 0.04; Luc % (Auto) 0; Lymphocytes # (A) 0.3 k/uL (1.0-4.8); Lymphocytes % (A) 3 %; MCHC 31.6 g/dL (31.0-37.0); MCV 98.2 fL (80.0-100.0); Mean Platelet Volume 8.6; Monocytes # (A) 0.4 k/uL (0-1.0); Monocytes % (A) 4 %; Neutrophils # (A) 9.4 k/uL (1.3-7.7); Neutrophils % (A) 92 %; WBC 10.3 k/uL (3.8-10.6); WBC (Perox) 10.03
[2016-03-13 03:44] LABS: ALT 106 U/L (9-52); AST 61 U/L (14-36); Alkaline Phosphatase 43 U/L (38-126); Blood Urea Nitrogen 25 mg/dL (7-17); Calcium 8.7 mg/dL (8.4-10.2); Chloride 92 mmol/L (98-107); Glucose 109 mg/dL (74-99); Magnesium 2.2 mg/dL (1.6-2.3); Non-African American GFR(MDRD) >60 (>60 ml/min/1.73 sqM); Phosphorous 2.7 mg/dL (2.5-4.5); Potassium 3.8 mmol/L (3.5-5.1); Sodium 135 mmol/L (137-145); Total Bilirubin 0.2 mg/dL (0.2-1.3)
[2016-03-13 03:51] LABS: Anion Gap 3 mmol/L
[2016-03-13 03:52] LABS: Carbon Dioxide 40 mmol/L (22-30)
[2016-03-13] MEDS: LORazepam 2 MG/ML SYRINGE IV PRN ×2 (03:52→10:27)
[2016-03-13] MEDS ORDERED: Potassium Replacement Protocol 1 EACH MISC MISCELLANE PRN (04:04)
[2016-03-13] MEDS ORDERED: POTASSIUM CHLORIDE ORAL LIQUID 40 MEQ/30 ML CUP NG-TUBE SCH (05:00)
[2016-03-13 05:39] LABS: Glucose,Whole Blood 117 mg/dL (75-99)
[2016-03-13] MEDS: INSULIN LISPRO (humaLOG) 300 UNIT/3 ML VIAL SQ SCH ×4 (05:57→20:08)
--- NOTE | 2016-03-13 07:16 | XR ---
EXAMINATION TYPE: XR chest 1V portable DATE OF EXAM: 03/13/2016 6:35 AM Comparison: 03/12/2016 Clinical History: 76 year-old female tube placement Findings: ET tube is satisfactory. NG tube courses below the diaphragm but the sidehole is at the level of the GE junction. Heart is normal size. Mild elongation of the thoracic ureter without prostatic calcifica tions throughout. Hyperinflation with interstitial prominence. Similar strandy peripheral right midlu ng opacities and strandy right basilar opacities. No consolidation or pleural effusion. Impression: 1. Note that the NG tube sidehole remains at the level of the GE junction. Tube could be slightly adv anced. 2. COPD with stable areas of strandy scarring/atelectasis. No acute process seen.
[2016-03-13] MEDS: CHLORHEXIDINE GLUCONATE 15 ML CUP MUCOUS MEM SCH ×2 (08:38→20:13)
[2016-03-13] MEDS: PANTOPRAZOLE 40 MG/10 ML VIAL IV SCH (08:38)
[2016-03-13] MEDS: PARoxetine 20 MG TAB PO SCH ×2 (08:39→20:14)
[2016-03-13] MEDS: NICOTINE 21MG/24HR PATCH TRANSDERM SCH (08:39)
[2016-03-13] MEDS: METOPROLOL SUCCINATE (ER) 25 MG TAB.ER.24H PO SCH (08:39)
[2016-03-13 10:29] LABS: ABG PCO2 57 mmHg (35-45); ABG PH 7.43 (7.35-7.45); ABG PO2 115 mmHg (83-108)
[2016-03-13 10:30] LABS: ABG Base Excess 12.1 mmol/L; ABG HCO3 37 mmol/L (21-25); ABG TCO2 39 mmol/L (19-24)
--- NOTE | 2016-03-13 11:10 | P.PN ---
Subjective Acute exacerbation of chronic obstructive pulmonary disease, with acute respiratory failure Patient is currently in the intensive care unit she is intubated sedated maintained on mechanical ventilation she had an episode of severe agitation was acute hypoxic and hypercapnic respiratory failure she was not responding to BiPAP she was transferred to ICU. 03/13/2016 Patient is scheduled to be extubated today. There is improvement in her ABG. She is agitated and receiving Ativan. Objective - Vital Signs Vital signs: Vital Signs Temp 97.6 F 03/13/16 07:00 Pulse 93 03/13/16 10:00 Resp 30 H 03/13/16 10:00 BP 112/62 03/12/16 16:00 Pulse Ox 95 03/13/16 10:00 Intake & Output 03/12/16 03/13/16 03/13/16 18:59 06:59 18:59 Intake Total 271.130 678.349 210.0 Output Total 895 530 115 Balance -623.870 148.349 95.0 Weight 42.5 kg 42.5 kg Intake: Intake, IV Titration 241.130 448.349 70.0 Amount Magnesium Sulfate-D5w Pmx 100 1 gm In Dextrose/Water 1 100ml.bag @ 100 mls/hr IVPB Q1H [facility] Rx#: [id number] Propofol 50 ml As IV .STK 30.0 -[facility] Rx#:[id number] Propofol 500 mg In Empty 141.130 118.349 Bag 1 bag @ Titrate IV . Q0M [facility] Rx#:[id number] Sodium Chloride 0.9% 1, 60 000 ml @ 100 mls/hr IV . Q10H [facility] Rx#:[id number] Sodium Chloride 0.9% 1, 270 40 000 ml @ 20 mls/hr IV . Q24H [facility] Rx#:[id number] Oral 0 0 Tube Feeding 30 230 80 Other 60 Output: Urine 895 530 115 Other: Voiding Method Bedpan Indwelling Catheter Indwelling Catheter ABP, PAP, CO, CI - Last Documented Arterial Blood Pressure 192/91 - Exam Head normocephalic Neck supple Lungs wheezing noted bilaterally Heart regular rate and rhythm S1-S2, no rub or gallop Abdomen is soft nontender nondistended positive bowel sounds no hepatosplenomegaly Extremities no edema Neuro alert and orientated to 3 - Labs CBC & Chem 7: 03/13/16 03:30 03/13/16 10:03 Labs: Abnormal Lab Results - Last 24 Hours (Table) 03/12/16 03/12/16 03/12/16 Range/Units 12:04 14:00 17:29 RBC (3.80-5.40) m/uL Hgb (11.4-16.0) gm/dL Hct (34.0-46.0) % Neutrophils # (1.3-7.7) k/uL Lymphocytes # (1.0-4.8) k/uL ABG pCO2 (35-45) mmHg ABG pO2 (83-108) mmHg ABG HCO3 (21-25) mmol/L ABG Total CO2 (19-24) mmol/L ABG O2 Saturation (94-97) % Sodium (137-145) mmol/L Chloride (98-107) mmol/L Carbon Dioxide (22-30) mmol/L BUN (7-17) mg/dL Glucose (74-99) mg/dL POC Glucose (mg/dL) 134 H 140 H (75-99) mg/dL Magnesium 2.5 H (1.6-2.3) mg/dL AST (14-36) U/L ALT (9-52) U/L Total Protein (6.3-8.2) g/dL Albumin (3.5-5.0) g/dL 03/12/16 03/13/16 03/13/16 Range/Units 20:20 00:37 03:30 RBC 3.30 L (3.80-5.40) m/uL Hgb 10.2 L (11.4-16.0) gm/dL Hct 32.4 L (34.0-46.0) % Neutrophils # 9.4 H (1.3-7.7) k/uL Lymphocytes # 0.3 L (1.0-4.8) k/uL ABG pCO2 (35-45) mmHg ABG pO2 (83-108) mmHg ABG HCO3 (21-25) mmol/L ABG Total CO2 (19-24) mmol/L ABG O2 Saturation (94-97) % Sodium (137-145) mmol/L Chloride (98-107) mmol/L Carbon Dioxide (22-30) mmol/L BUN (7-17) mg/dL Glucose (74-99) mg/dL POC Glucose (mg/dL) 132 H 174 H (75-99) mg/dL Magnesium (1.6-2.3) mg/dL AST (14-36) U/L ALT (9-52) U/L Total Protein (6.3-8.2) g/dL Albumin (3.5-5.0) g/dL 03/13/16 03/13/16 03/13/16 Range/Units 03:30 05:37 08:52 RBC (3.80-5.40) m/uL Hgb (11.4-16.0) gm/dL Hct (34.0-46.0) % Neutrophils # (1.3-7.7) k/uL Lymphocytes # (1.0-4.8) k/uL ABG pCO2 57 H (35-45) mmHg ABG pO2 115 H (83-108) mmHg ABG HCO3 37 H (21-25) mmol/L ABG Total CO2 39 H (19-24) mmol/L ABG O2 Saturation 99.0 H (94-97) % Sodium 135 L (137-145) mmol/L Chloride 92 L (98-107) mmol/L Carbon Dioxide 40 H* (22-30) mmol/L BUN 25 H (7-17) mg/dL Glucose 109 H (74-99) mg/dL POC Glucose (mg/dL) 117 H (75-99) mg/dL Magnesium (1.6-2.3) mg/dL AST 61 H (14-36) U/L ALT 106 H (9-52) U/L Total Protein 5.0 L (6.3-8.2) g/dL Albumin 2.8 L (3.5-5.0) g/dL Microbiology - Last 24 Hours (Table) 03/12/16 01:50 Gram Stain - Preliminary Sputum Sputum Culture - Preliminary Assessment and Plan Plan: 1. Acute respiratory failure likely secondary to her COPD exacerbation. Patient did require to be intubated and placed on mechanical ventilation. She is showing improvement. Pulmonary is following and patient is scheduled to be extubated today. 2. Acute COPD exacerbation: Continue nebulizer treatments and IV Solu-Medrol and continue Pulmicort. Pulmonary service consulted 3. Acute tracheobronchitis started on Levaquin. No evidence of pneumonia on chest x-ray 4. Elevated d-dimer on admission CT of the chest completed and negative for PE 5. Questionable atrial fibrillation in the emergency room. Seen evaluated by cardiology. There's been no documentation or evidence of atrial fibrillation. Continue telemetry monitoring. 6. Known history of abdominal aortic aneurysm there is a slight increase in size noted on CTA of the chest from 3.6 cm to 4.4 cm. Evaluated by vascular surgery and patient not a surgical candidate. 7. Nicotine dependence discussed smoking cessation for approximately 5 minutes. Continue nicotine patch 8. Hyponatremia present on admission. His has resolved 9. Hyperkalemia: Resolved after Kayexalate. Lisinopril remains on hold. 10. DVT prophylaxis heparin and GI prophylaxis Protonix
[2016-03-13] MEDS: BUDESONIDE 0.5 MG/2 ML NEBU INHALATION SCH ×2 (11:14→19:21)
[2016-03-13] MEDS: IPRATROPIUM-ALBUTEROL 3 ML NEB INHALATION SCH ×4 (11:14→19:21)
[2016-03-13 11:35] LABS: Glucose,Whole Blood 147 mg/dL (75-99)
[2016-03-13] MEDS: LEVOFLOXACIN 500MG-D5W PMX 500 MG in DEXTROSE/WATER 1 100ML.BAG IVPB SCH (11:37)
--- NOTE | 2016-03-13 12:35 | P.PN ---
Subjective Principal diagnosis: Acute hypoxic and hypercapnic respiratory failure secondary to COPD exacerbation This is a 76-year-old female, familiar to my service, I just saw her last week. Patient saw me for follow-up on her COPD, and she was doing surprisingly well at the time of her last evaluation. Patient is known to have severe end-stage COPD, she has a stage IV COPD, patient is O2 dependent, and she is prednisone responsive. She presented to the ER with mostly few days history of increased shortness of breath, cough and wheezing. CT of the chest on admission showed no evidence of pneumonia, and no evidence of pulmonary embolism. Upon admission there was a questionable brief episode of atrial fibrillation while in the ER, but no solid documentation noted on the rhythm strip while in the ER. 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 Upon my evaluation, the patient was feeling better, she was still on BiPAP, but much improved. No headaches no blurred vision no dizziness no cough no wheezing no shortness of breath no chest pain no nausea no vomiting no abdominal pain no melena and no hematemesis. No dysuria frequency or urgency. Patient was reevaluated today on 03/11/2016, she is back on BiPAP today, and apparently she had an episode of hypoxia with desaturation earlier today, and she was quite anxious. Hence the patient was given Ativan, placed on BiPAP, and I saw her shortly after this, she seemed to have responded well to the Ativan and to the BiPAP. Feeling much better, breathing easier, and she seems to be more cooperative and very oriented 3. Potassium however was noted to be high at 6.0, and I believe most likely secondary to her underlying respiratory acidosis hence I recommended one dose of Kayexalate. Patient was reevaluated today on 03/12/2016, apparently last night, patient took a downhill course and she developed what seemed to be a picture of worsening hypoxic and hypercapnic respiratory failure. Patient was not responding to BiPAP, and she was getting extremely agitated, and she was in severe respiratory distress. I was notified about the patient, hence I recommended immediate intubation and transferred to the ICU. Patient is now in the intensive care unit, on assist control mechanical mode of ventilation, she is on a tidal volume of 300, FiO2 is 40%, and assist control rate of 10. Chest x- ray showed endotracheal tube to be in adequate position, nasogastric tube is also on the proper position, and her chest x-ray showed chronic lung changes. Labs were reviewed and her ABG showed a pO2 of 133 pCO2 of 58 pH of 7.44. Basic metabolic profile is normal, bicarb as expected is 41. Patient will have nutritional support today, and we'll start feeding via nasogastric tube. Patient was reevaluated today on 03/13/2016, remains on assist control mode of mechanical ventilation, patient is sedated, I have attempted today a trial of weaning, however as we went down on the propofol, patient was getting extremely agitated, restless, and clearly not quite ready for weaning at this point. ABG showed a pO2 of 115 pCO2 of 57 pH of 7.43. Her bicarb is 40. Potassium is 4.5 today. Chest x-ray showing COPD, and minimal areas of Strand atelectasis or scarring. No evidence of infiltrate noted on the chest x-ray. Patient has been hemodynamically stable, and I felt today would be a good day to wake of the patient, and give her a weaning trial. But clearly she is not quite ready for weaning at this point. Objective - Vital Signs Vital signs: Vital Signs Temp 97.6 F 03/13/16 07:00 Pulse 100 03/13/16 12:17 Resp 21 03/13/16 11:56 BP 112/62 03/12/16 16:00 Pulse Ox 98 03/13/16 11:00 Intake & Output 03/12/16 03/13/16 03/13/16 18:59 06:59 18:59 Intake Total 271.130 678.349 280.0 Output Total 895 530 185 Balance -623.870 148.349 95.0 Weight 42.5 kg 42.5 kg Intake: Intake, IV Titration 241.130 448.349 70.0 Amount Magnesium Sulfate-D5w Pmx 100 1 gm In Dextrose/Water 1 100ml.bag @ 100 mls/hr IVPB Q1H [facility] Rx#: [id number] Propofol 50 ml As IV .STK 30.0 -[facility] Rx#:[id number] Propofol 500 mg In Empty 141.130 118.349 Bag 1 bag @ Titrate IV . Q0M [facility] Rx#:[id number] Sodium Chloride 0.9% 1, 60 000 ml @ 100 mls/hr IV . Q10H [facility] Rx#:[id number] Sodium Chloride 0.9% 1, 270 40 000 ml @ 20 mls/hr IV . Q24H [facility] Rx#:[id number] Oral 0 0 Tube Feeding 30 230 120 Other 90 Output: Urine 895 530 185 Other: Voiding Method Bedpan Indwelling Catheter Indwelling Catheter ABP, PAP, CO, CI - Last Documented Arterial Blood Pressure 167/73 - Exam HEENT:[Neck is supple.] [No neck masses.] [No thyromegaly.] [No JVD.] Endotracheal tube and nasogastric tube are intact. Chest: [Diminished breath sound bilaterally no crackles or rhonchi or wheezes.] Cardiac Exam: [Normal S1 and S2, no S3 gallop, no murmur.] Abdomen: [Soft, nontender, no megaly, no rebound, no guarding, normal bowel sounds.] Extremities: [No clubbing, no edema, no cyanosis.] Neurological Exam: [Cannot be assessed, patient is sedated on propofol. - Labs CBC & Chem 7: 03/13/16 03:30 03/13/16 10:03 Labs: Abnormal Lab Results - Last 24 Hours (Table) 03/12/16 03/12/16 03/12/16 Range/Units 14:00 17:29 20:20 RBC (3.80-5.40) m/uL Hgb (11.4-16.0) gm/dL Hct (34.0-46.0) % Neutrophils # (1.3-7.7) k/uL Lymphocytes # (1.0-4.8) k/uL ABG pCO2 (35-45) mmHg ABG pO2 (83-108) mmHg ABG HCO3 (21-25) mmol/L ABG Total CO2 (19-24) mmol/L ABG O2 Saturation (94-97) % Sodium (137-145) mmol/L Chloride (98-107) mmol/L Carbon Dioxide (22-30) mmol/L BUN (7-17) mg/dL Glucose (74-99) mg/dL POC Glucose (mg/dL) 140 H 132 H (75-99) mg/dL Magnesium 2.5 H (1.6-2.3) mg/dL AST (14-36) U/L ALT (9-52) U/L Total Protein (6.3-8.2) g/dL Albumin (3.5-5.0) g/dL 03/13/16 03/13/16 03/13/16 Range/Units 00:37 03:30 03:30 RBC 3.30 L (3.80-5.40) m/uL Hgb 10.2 L (11.4-16.0) gm/dL Hct 32.4 L (34.0-46.0) % Neutrophils # 9.4 H (1.3-7.7) k/uL Lymphocytes # 0.3 L (1.0-4.8) k/uL ABG pCO2 (35-45) mmHg ABG pO2 (83-108) mmHg ABG HCO3 (21-25) mmol/L ABG Total CO2 (19-24) mmol/L ABG O2 Saturation (94-97) % Sodium 135 L (137-145) mmol/L Chloride 92 L (98-107) mmol/L Carbon Dioxide 40 H* (22-30) mmol/L BUN 25 H (7-17) mg/dL Glucose 109 H (74-99) mg/dL POC Glucose (mg/dL) 174 H (75-99) mg/dL Magnesium (1.6-2.3) mg/dL AST 61 H (14-36) U/L ALT 106 H (9-52) U/L Total Protein 5.0 L (6.3-8.2) g/dL Albumin 2.8 L (3.5-5.0) g/dL 03/13/16 03/13/16 03/13/16 Range/Units 05:37 08:52 11:33 RBC (3.80-5.40) m/uL Hgb (11.4-16.0) gm/dL Hct (34.0-46.0) % Neutrophils # (1.3-7.7) k/uL Lymphocytes # (1.0-4.8) k/uL ABG pCO2 57 H (35-45) mmHg ABG pO2 115 H (83-108) mmHg ABG HCO3 37 H (21-25) mmol/L ABG Total CO2 39 H (19-24) mmol/L ABG O2 Saturation 99.0 H (94-97) % Sodium (137-145) mmol/L Chloride (98-107) mmol/L Carbon Dioxide (22-30) mmol/L BUN (7-17) mg/dL Glucose (74-99) mg/dL POC Glucose (mg/dL) 117 H 147 H (75-99) mg/dL Magnesium (1.6-2.3) mg/dL AST (14-36) U/L ALT (9-52) U/L Total Protein (6.3-8.2) g/dL Albumin (3.5-5.0) g/dL Microbiology - Last 24 Hours (Table) 03/12/16 01:50 Gram Stain - Preliminary Sputum Sputum Culture - Preliminary Assessment and Plan Plan: Impression: Acute on chronic hypoxic and hypercapnic respiratory failure, failed BiPAP, patient is now on mechanical ventilation. Presently on assist control mode of mechanical ventilation, failed a trial of sedation holiday, patient became extremely agitated and restless even when the propofol dose went down to 10 mcg/kg/m. Multiple comorbidities including history of hypertension, hyperlipidemia, tobacco dependence syndrome, questionable brief episode of atrial fibrillation. Recommendation: Continue present supportive measures, patient will remain on mechanical ventilation, nutritional support, bronchodilators, steroids, and we' ll assess weaning on a daily basis. Tracheostomy is out of question, but that is to be discussed again with family members if we get to that point. Time with Patient: Greater than 30
[2016-03-13 17:13] LABS: Glucose,Whole Blood 134 mg/dL (75-99)
[2016-03-13 20:09] LABS: Glucose,Whole Blood 156 mg/dL (75-99)
[2016-03-13] MEDS: ATORVASTATIN 10 MG TAB PO SCH (20:14)
[2016-03-14] MEDS: PROPOFOL 500 MG in EMPTY BAG 1 BAG IV SCH ×5 (01:34→23:32)
[2016-03-14 03:27] LABS: Basophils % (A) 0 %; CHCM 31.3; Eosinophils % (A) 0 %; HCT 33.7 % (34.0-46.0); HDW 2.21; HGB 10.7 gm/dL (11.4-16.0); Luc # (Auto) 0.06; Luc % (Auto) 1; Lymphocytes # (A) 0.2 k/uL (1.0-4.8); Lymphocytes % (A) 2 %; MCH 31.6 pg (25.0-35.0); MCHC 31.8 g/dL (31.0-37.0); MCV 99.4 fL (80.0-100.0); Macrocytosis Slight; Mean Platelet Volume 7.5; Monocytes # (A) 0.3 k/uL (0-1.0); Monocytes % (A) 3 %; Neutrophils # (A) 9.6 k/uL (1.3-7.7); Neutrophils % (A) 94 %; RBC 3.39 m/uL (3.80-5.40); RDW 14.9 % (11.5-15.5); WBC 10.2 k/uL (3.8-10.6); WBC (Perox) 10.94
[2016-03-14 03:41] LABS: Anion Gap 3 mmol/L; Blood Urea Nitrogen 32 mg/dL (7-17); Calcium 8.7 mg/dL (8.4-10.2); Carbon Dioxide 38 mmol/L (22-30); Chloride 94 mmol/L (98-107); Glucose 148 mg/dL (74-99); Magnesium 2.1 mg/dL (1.6-2.3); Non-African American GFR(MDRD) >60 (>60 ml/min/1.73 sqM); Phosphorous 2.9 mg/dL (2.5-4.5); Potassium 4.3 mmol/L (3.5-5.1); Sodium 135 mmol/L (137-145)
[2016-03-14] MEDS: LORazepam 2 MG/ML SYRINGE IV PRN ×4 (03:42→17:51)
[2016-03-14 05:47] LABS: ABG HCO3 40 mmol/L (21-25)
--- NOTE | 2016-03-14 07:17 | XR ---
EXAMINATION TYPE: XR chest 1V portable DATE OF EXAM: 03/14/2016 6:50 AM COMPARISON: 03/13/2016 HISTORY: SOB, Follow Up FINDINGS: Indwelling tubes and catheters are unchanged. No focal infiltrate seen. Hyperinflation compatible with COPD. Stable appearance of the cardio-mediastinal structures at this time. Pleural effusion unchanged. IMPRESSION: 1. Stable portable chest. Clinical correlation and follow up until resolution is recommended.
[2016-03-14] MEDS: BUDESONIDE 0.5 MG/2 ML NEBU INHALATION SCH ×2 (07:32→19:39)
[2016-03-14] MEDS: IPRATROPIUM-ALBUTEROL 3 ML NEB INHALATION SCH ×4 (07:32→19:39)
[2016-03-14 08:40] LABS: Glucose,Whole Blood 136 mg/dL (75-99)
[2016-03-14] MEDS: NICOTINE 21MG/24HR PATCH TRANSDERM SCH (08:40)
[2016-03-14] MEDS: HEPARIN SODIUM,PORCINE 5,000 UNIT/ML 1 ML VIAL SQ SCH ×3 (08:40→23:32)
[2016-03-14] MEDS: INSULIN LISPRO (humaLOG) 300 UNIT/3 ML VIAL SQ SCH ×5 (08:41→22:17)
[2016-03-14] MEDS: METOPROLOL SUCCINATE (ER) 25 MG TAB.ER.24H PO SCH (08:41)
[2016-03-14] MEDS: CHLORHEXIDINE GLUCONATE 15 ML CUP MUCOUS MEM SCH ×2 (08:41→21:19)
[2016-03-14] MEDS: PARoxetine 20 MG TAB PO SCH ×2 (08:41→21:20)
[2016-03-14] MEDS: methylPREDNISolone SOD SUCCI 125 MG/2 ML VIAL IV SCH ×3 (08:41→23:32)
[2016-03-14] MEDS: PANTOPRAZOLE 40 MG/10 ML VIAL IV SCH (08:41)
[2016-03-14 08:57] LABS: ABG HCO3 37 mmol/L (21-25); ABG PCO2 61 mmHg (35-45); ABG PO2 120 mmHg (83-108)
[2016-03-14 08:58] LABS: ABG TCO2 39 mmol/L (19-24)
[2016-03-14] MEDS: hydrALAZINE HCL 20 MG/ML 1 ML VIAL IVP PRN (10:06)
[2016-03-14] MEDS: amLODIPine 5 MG TAB PO SCH (10:15)
[2016-03-14] MEDS: LEVOFLOXACIN 500MG-D5W PMX 500 MG in DEXTROSE/WATER 1 100ML.BAG IVPB SCH (11:08)
[2016-03-14] MEDS: LISINOPRIL 10 MG TAB PO SCH (11:08)
--- NOTE | 2016-03-14 11:47 | P.PN ---
Subjective Acute exacerbation of chronic obstructive pulmonary disease, with acute respiratory failure Patient is currently in the intensive care unit she is intubated sedated maintained on mechanical ventilation she had an episode of severe agitation was acute hypoxic and hypercapnic respiratory failure she was not responding to BiPAP she was transferred to ICU. 03/13/2016 Patient is scheduled to be extubated today. There is improvement in her ABG. She is agitated and receiving Ativan. 03/14/2016 Patient was unable to tolerate weaning trial for extubation. She was agitated and had elevated blood pressures. Awaiting to be seen by pulmonary service today. Objective - Vital Signs Vital signs: Vital Signs Temp 97.6 F 03/14/16 08:00 Pulse 117 H 03/14/16 11:42 Resp 35 H 03/14/16 11:00 BP 112/62 03/12/16 16:00 Pulse Ox 99 03/14/16 11:00 Intake & Output 03/13/16 03/14/16 03/14/16 18:59 06:59 18:59 Intake Total 633.6 937.82 441.63 Output Total 480 755 145 Balance 153.6 182.82 296.63 Weight 49.1 kg Intake: Intake, IV Titration 307.6 444.82 266.63 Amount Levofloxacin 500Mg-D5w 100 Pmx 500 mg In Dextrose/ Water 1 100ml.bag @ 100 mls/hr IVPB Q24H [facility] Rx#: [id number] Propofol 50 ml As IV .STK 30.0 [facility] Rx#:[id number] Propofol 500 mg In Empty 97.6 74.82 56.63 Bag 1 bag @ Titrate IV . Q0M [facility] Rx#:[id number] Sodium Chloride 0.9% 1, 180 370 110 000 ml @ 20 mls/hr IV . Q24H [facility] Rx#:[id number] Oral 0 Tube Feeding 236 493 145 Other 90 30 Output: Urine 480 755 145 Other: Voiding Method Indwelling Catheter Indwelling Catheter Indwelling Catheter ABP, PAP, CO, CI - Last Documented Arterial Blood Pressure 168/117 - Exam Head normocephalic Neck supple Lungs no wheezing noted today Heart regular rate and rhythm S1-S2, no rub or gallop Abdomen is soft nontender nondistended positive bowel sounds no hepatosplenomegaly Extremities no edema Neuro alert and orientated to 3 - Labs CBC & Chem 7: 03/14/16 03:14 03/14/16 03:14 Labs: Abnormal Lab Results - Last 24 Hours (Table) 03/12/16 03/13/16 03/13/16 Range/Units 00:39 17:12 20:07 RBC (3.80-5.40) m/uL Hgb (11.4-16.0) gm/dL Hct (34.0-46.0) % Neutrophils # (1.3-7.7) k/uL Lymphocytes # (1.0-4.8) k/uL ABG pH 7.33 L (7.35-7.45) ABG pCO2 76 H* (35-45) mmHg ABG pO2 >420 H (83-108) mmHg ABG HCO3 40 H* (21-25) mmol/L ABG Total CO2 42 H (19-24) mmol/L ABG O2 Saturation 100.0 H (94-97) % Sodium (137-145) mmol/L Chloride (98-107) mmol/L Carbon Dioxide (22-30) mmol/L BUN (7-17) mg/dL Glucose (74-99) mg/dL POC Glucose (mg/dL) 134 H 156 H (75-99) mg/dL 03/14/16 03/14/16 03/14/16 Range/Units 03:14 03:14 08:37 RBC 3.39 L (3.80-5.40) m/uL Hgb 10.7 L (11.4-16.0) gm/dL Hct 33.7 L (34.0-46.0) % Neutrophils # 9.6 H (1.3-7.7) k/uL Lymphocytes # 0.2 L (1.0-4.8) k/uL ABG pH (7.35-7.45) ABG pCO2 (35-45) mmHg ABG pO2 (83-108) mmHg ABG HCO3 (21-25) mmol/L ABG Total CO2 (19-24) mmol/L ABG O2 Saturation (94-97) % Sodium 135 L (137-145) mmol/L Chloride 94 L (98-107) mmol/L Carbon Dioxide 38 H (22-30) mmol/L BUN 32 H (7-17) mg/dL Glucose 148 H (74-99) mg/dL POC Glucose (mg/dL) 136 H (75-99) mg/dL 03/14/16 Range/Units 08:45 RBC (3.80-5.40) m/uL Hgb (11.4-16.0) gm/dL Hct (34.0-46.0) % Neutrophils # (1.3-7.7) k/uL Lymphocytes # (1.0-4.8) k/uL ABG pH (7.35-7.45) ABG pCO2 61 H (35-45) mmHg ABG pO2 120 H (83-108) mmHg ABG HCO3 37 H (21-25) mmol/L ABG Total CO2 39 H (19-24) mmol/L ABG O2 Saturation 99.0 H (94-97) % Sodium (137-145) mmol/L Chloride (98-107) mmol/L Carbon Dioxide (22-30) mmol/L BUN (7-17) mg/dL Glucose (74-99) mg/dL POC Glucose (mg/dL) (75-99) mg/dL Assessment and Plan Plan: 1. Acute respiratory failure likely secondary to her COPD exacerbation. Patient did require to be intubated and placed on mechanical ventilation. She is showing improvement. Did not tolerate weaning trial. Continue to monitor and wait for the pulmonary recommendations. 2. Acute COPD exacerbation: Continue nebulizer treatments and IV Solu-Medrol and continue Pulmicort. Pulmonary service following 3. Acute tracheobronchitis started on Levaquin. No evidence of pneumonia on chest x-ray 4. Elevated d-dimer on admission CT of the chest completed and negative for PE 5. Questionable atrial fibrillation in the emergency room. Seen evaluated by cardiology. There's been no documentation or evidence of atrial fibrillation. Continue telemetry monitoring. 6. Known history of abdominal aortic aneurysm there is a slight increase in size noted on CTA of the chest from 3.6 cm to 4.4 cm. Evaluated by vascular surgery and patient not a surgical candidate. 7. Nicotine dependence discussed smoking cessation for approximately 5 minutes. Continue nicotine patch 8. Hyponatremia present on admission. His has resolved 9. Hyperkalemia: Resolved after Kayexalate. Lisinopril remains on hold. 10. DVT prophylaxis heparin and GI prophylaxis Protonix
[2016-03-14 12:23] LABS: Glucose,Whole Blood 132 mg/dL (75-99)
[2016-03-14 12:24] LABS: ABG PH 7.45 (7.35-7.45)
[2016-03-14 12:25] LABS: ABG HCO3 35 mmol/L (21-25); ABG PCO2 52 mmHg (35-45); ABG PO2 111 mmHg (83-108); ABG TCO2 37 mmol/L (19-24)
[2016-03-14 14:55] VITALS: BMI 20.1
--- NOTE | 2016-03-14 15:01 | P.PN ---
Subjective Principal diagnosis: Acute hypoxic and hypercapnic respiratory failure secondary to COPD exacerbation This is a 76-year-old female, familiar to my service, I just saw her last week. Patient saw me for follow-up on her COPD, and she was doing surprisingly well at the time of her last evaluation. Patient is known to have severe end-stage COPD, she has a stage IV COPD, patient is O2 dependent, and she is prednisone responsive. She presented to the ER with mostly few days history of increased shortness of breath, cough and wheezing. CT of the chest on admission showed no evidence of pneumonia, and no evidence of pulmonary embolism. Upon admission there was a questionable brief episode of atrial fibrillation while in the ER, but no solid documentation noted on the rhythm strip while in the ER. 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 Upon my evaluation, the patient was feeling better, she was still on BiPAP, but much improved. No headaches no blurred vision no dizziness no cough no wheezing no shortness of breath no chest pain no nausea no vomiting no abdominal pain no melena and no hematemesis. No dysuria frequency or urgency. Patient was reevaluated today on 03/11/2016, she is back on BiPAP today, and apparently she had an episode of hypoxia with desaturation earlier today, and she was quite anxious. Hence the patient was given Ativan, placed on BiPAP, and I saw her shortly after this, she seemed to have responded well to the Ativan and to the BiPAP. Feeling much better, breathing easier, and she seems to be more cooperative and very oriented 3. Potassium however was noted to be high at 6.0, and I believe most likely secondary to her underlying respiratory acidosis hence I recommended one dose of Kayexalate. Patient was reevaluated today on 03/12/2016, apparently last night, patient took a downhill course and she developed what seemed to be a picture of worsening hypoxic and hypercapnic respiratory failure. Patient was not responding to BiPAP, and she was getting extremely agitated, and she was in severe respiratory distress. I was notified about the patient, hence I recommended immediate intubation and transferred to the ICU. Patient is now in the intensive care unit, on assist control mechanical mode of ventilation, she is on a tidal volume of 300, FiO2 is 40%, and assist control rate of 10. Chest x- ray showed endotracheal tube to be in adequate position, nasogastric tube is also on the proper position, and her chest x-ray showed chronic lung changes. Labs were reviewed and her ABG showed a pO2 of 133 pCO2 of 58 pH of 7.44. Basic metabolic profile is normal, bicarb as expected is 41. Patient will have nutritional support today, and we'll start feeding via nasogastric tube. Patient was reevaluated today on 03/13/2016, remains on assist control mode of mechanical ventilation, patient is sedated, I have attempted today a trial of weaning, however as we went down on the propofol, patient was getting extremely agitated, restless, and clearly not quite ready for weaning at this point. ABG showed a pO2 of 115 pCO2 of 57 pH of 7.43. Her bicarb is 40. Potassium is 4.5 today. Chest x-ray showing COPD, and minimal areas of Strand atelectasis or scarring. No evidence of infiltrate noted on the chest x-ray. Patient has been hemodynamically stable, and I felt today would be a good day to wake of the patient, and give her a weaning trial. But clearly she is not quite ready for weaning at this point. Patient was reevaluated today on 03/14/2016, I switched her today to a trial of pressure support and IMV mode of mechanical ventilation, and as the sedation was wearing off, patient was getting extremely tachycardic, tachypneic, and clearly failed a trial although she was still on IMV of 8, and a pressure support of 12. Hence I had to place her back on propofol drip. And I kept her on IMV of 8 and pressure support of 12, hoping to get her pCO2 adjusted to where her baseline is. Chest x-ray is relatively unchanged, her labs are noted , ABG today on pressure support and IMV showed a pO2 of 111 pCO2 of 50 to pH of 7.45. Patient seems to be metabolically alkalotic, hence I will cautiously hydrate the patient. And may even use Diamox if I need to diurese the patient. But at this point I believe the patient is clinically dehydrated, and she would benefit from extra fluids which I will order today. Renal functioning seems normal. Objective - Vital Signs Vital signs: Vital Signs Temp 97.6 F 03/14/16 12:00 Pulse 106 H 03/14/16 14:00 Resp 15 03/14/16 14:00 BP 112/62 03/12/16 16:00 Pulse Ox 96 03/14/16 14:00 Intake & Output 03/13/16 03/14/16 03/14/16 18:59 06:59 18:59 Intake Total 633.6 937.82 690.508 Output Total 480 755 320 Balance 153.6 182.82 370.508 Weight 49.1 kg 51.5 kg Intake: Intake, IV Titration 307.6 444.82 369.508 Amount Levofloxacin 500Mg-D5w 100 Pmx 500 mg In Dextrose/ Water 1 100ml.bag @ 100 mls/hr IVPB Q24H [facility] Rx#: [id number] Propofol 50 ml As IV .STK 30.0 -[facility] Rx#:[id number] Propofol 500 mg In Empty 97.6 74.82 69.508 Bag 1 bag @ Titrate IV . Q0M [facility] Rx#:[id number] Sodium Chloride 0.9% 1, 180 370 200 000 ml @ 20 mls/hr IV . Q24H [facility] Rx#:[id number] Oral 0 Tube Feeding 236 493 261 Other 90 60 Output: Urine 480 755 320 Other: Voiding Method Indwelling Catheter Indwelling Catheter Indwelling Catheter ABP, PAP, CO, CI - Last Documented Arterial Blood Pressure 97/48 - Exam HEENT:[Neck is supple.] [No neck masses.] [No thyromegaly.] [No JVD.] Endotracheal tube and nasogastric tube are intact. Chest: [Diminished breath sound bilaterally no crackles or rhonchi or wheezes.] Cardiac Exam: [Normal S1 and S2, no S3 gallop, no murmur.] Abdomen: [Soft, nontender, no megaly, no rebound, no guarding, normal bowel sounds.] Extremities: [No clubbing, no edema, no cyanosis.] Neurological Exam: [Cannot be assessed, patient is sedated on propofol. - Labs CBC & Chem 7: 03/14/16 03:14 03/14/16 03:14 Labs: Abnormal Lab Results - Last 24 Hours (Table) 03/12/16 03/13/16 03/13/16 Range/Units 00:39 17:12 20:07 RBC (3.80-5.40) m/uL Hgb (11.4-16.0) gm/dL Hct (34.0-46.0) % Neutrophils # (1.3-7.7) k/uL Lymphocytes # (1.0-4.8) k/uL ABG pH 7.33 L (7.35-7.45) ABG pCO2 76 H* (35-45) mmHg ABG pO2 >420 H (83-108) mmHg ABG HCO3 40 H* (21-25) mmol/L ABG Total CO2 42 H (19-24) mmol/L ABG O2 Saturation 100.0 H (94-97) % Sodium (137-145) mmol/L Chloride (98-107) mmol/L Carbon Dioxide (22-30) mmol/L BUN (7-17) mg/dL Glucose (74-99) mg/dL POC Glucose (mg/dL) 134 H 156 H (75-99) mg/dL 03/14/16 03/14/16 03/14/16 Range/Units 03:14 03:14 08:37 RBC 3.39 L (3.80-5.40) m/uL Hgb 10.7 L (11.4-16.0) gm/dL Hct 33.7 L (34.0-46.0) % Neutrophils # 9.6 H (1.3-7.7) k/uL Lymphocytes # 0.2 L (1.0-4.8) k/uL ABG pH (7.35-7.45) ABG pCO2 (35-45) mmHg ABG pO2 (83-108) mmHg ABG HCO3 (21-25) mmol/L ABG Total CO2 (19-24) mmol/L ABG O2 Saturation (94-97) % Sodium 135 L (137-145) mmol/L Chloride 94 L (98-107) mmol/L Carbon Dioxide 38 H (22-30) mmol/L BUN 32 H (7-17) mg/dL Glucose 148 H (74-99) mg/dL POC Glucose (mg/dL) 136 H (75-99) mg/dL 03/14/16 03/14/16 03/14/16 Range/Units 08:45 12:15 12:21 RBC (3.80-5.40) m/uL Hgb (11.4-16.0) gm/dL Hct (34.0-46.0) % Neutrophils # (1.3-7.7) k/uL Lymphocytes # (1.0-4.8) k/uL ABG pH (7.35-7.45) ABG pCO2 61 H 52 H (35-45) mmHg ABG pO2 120 H 111 H (83-108) mmHg ABG HCO3 37 H 35 H (21-25) mmol/L ABG Total CO2 39 H 37 H (19-24) mmol/L ABG O2 Saturation 99.0 H 98.0 H (94-97) % Sodium (137-145) mmol/L Chloride (98-107) mmol/L Carbon Dioxide (22-30) mmol/L BUN (7-17) mg/dL Glucose (74-99) mg/dL POC Glucose (mg/dL) 132 H (75-99) mg/dL Assessment and Plan Plan: Impression: Acute on chronic hypoxic and hypercapnic respiratory failure, failed BiPAP, patient is now on mechanical ventilation. Presently IMV and pressure support mode of mechanical ventilation, failed a trial of sedation holiday, patient became extremely agitated and restless even when the propofol dose was discontinued. Hence the patient is back on propofol and we'll adjust accordingly. Discussed her failed weaning with the family at bedside, and again the issue of tracheostomy was brought up, and the patient had previously expressed wishes as not to have tracheostomy. Multiple comorbidities including history of hypertension, hyperlipidemia, tobacco dependence syndrome, questionable brief episode of atrial fibrillation. Recommendation: Continue present supportive measures, patient will remain on mechanical ventilation, nutritional support, bronchodilators, steroids, and we' ll assess weaning on a daily basis. Tracheostomy is out of question, but that is to be discussed again with family members if we get to that point. Critical care time is 45 minutes Time with Patient: Greater than 30
[2016-03-14] MEDS: SODIUM CHLORIDE 0.9% 1,000 ML IV SCH (15:25)
[2016-03-14 18:24] LABS: Glucose,Whole Blood 137 mg/dL (75-99)
[2016-03-14] MEDS: ATORVASTATIN 10 MG TAB PO SCH (21:19)
[2016-03-14] MEDS: METOPROLOL SUCCINATE (ER) 50 MG TAB.ER.24H PO SCH (21:20)
[2016-03-15 01:19] LABS: Glucose,Whole Blood 151 mg/dL (75-99)
[2016-03-15] MEDS: INSULIN LISPRO (humaLOG) 300 UNIT/3 ML VIAL SQ SCH ×3 (01:27→12:58)
[2016-03-15] MEDS: SODIUM CHLORIDE 0.9% 1,000 ML IV SCH ×3 (01:27→10:12)
[2016-03-15] MEDS: PROPOFOL 500 MG in EMPTY BAG 1 BAG IV SCH ×2 (02:54→06:11)
[2016-03-15] MEDS: hydrALAZINE HCL 20 MG/ML 1 ML VIAL IVP PRN ×2 (04:21→10:44)
[2016-03-15] MEDS: LORazepam 2 MG/ML SYRINGE IV PRN (04:52)
[2016-03-15 05:20] LABS: Basophils % (A) 0 %; CH 31.1; CHCM 31.6; Eosinophils % (A) 0 %; HCT 34.7 % (34.0-46.0); HDW 2.27; HGB 10.9 gm/dL (11.4-16.0); Luc # (Auto) 0.03; Luc % (Auto) 0; Lymphocytes # (A) 0.3 k/uL (1.0-4.8); Lymphocytes % (A) 2 %; MCH 31.2 pg (25.0-35.0); MCHC 31.5 g/dL (31.0-37.0); Macrocytosis Slight; Mean Platelet Volume 8.8; Monocytes # (A) 0.4 k/uL (0-1.0); Monocytes % (A) 4 %; Neutrophils # (A) 11.3 k/uL (1.3-7.7); Neutrophils % (A) 94 %; RBC 3.51 m/uL (3.80-5.40); RDW 15.2 % (11.5-15.5); WBC 12.1 k/uL (3.8-10.6); WBC (Perox) 12.14
[2016-03-15 05:34] LABS: Anion Gap 4 mmol/L; Blood Urea Nitrogen 31 mg/dL (7-17); Calcium 8.6 mg/dL (8.4-10.2); Carbon Dioxide 37 mmol/L (22-30); Chloride 97 mmol/L (98-107); Glucose 127 mg/dL (74-99); Non-African American GFR(MDRD) >60 (>60 ml/min/1.73 sqM); Phosphorous 2.9 mg/dL (2.5-4.5); Potassium 4.3 mmol/L (3.5-5.1); Sodium 138 mmol/L (137-145)
[2016-03-15 06:16] LABS: Glucose,Whole Blood 130 mg/dL (75-99)
[2016-03-15] MEDS: IPRATROPIUM-ALBUTEROL 3 ML NEB INHALATION SCH ×2 (07:52→11:24)
[2016-03-15] MEDS: BUDESONIDE 0.5 MG/2 ML NEBU INHALATION SCH (07:52)
[2016-03-15 08:35] LABS: ABG HCO3 35 mmol/L (21-25); ABG PCO2 54 mmHg (35-45); ABG PH 7.43 (7.35-7.45); ABG PO2 131 mmHg (83-108); ABG TCO2 37 mmol/L (19-24)
[2016-03-15] MEDS: HEPARIN SODIUM,PORCINE 5,000 UNIT/ML 1 ML VIAL SQ SCH (08:57)
[2016-03-15] MEDS: LISINOPRIL 10 MG TAB PO SCH (09:00)
[2016-03-15] MEDS: methylPREDNISolone SOD SUCCI 125 MG/2 ML VIAL IV SCH (09:00)
[2016-03-15] MEDS: METOPROLOL SUCCINATE (ER) 50 MG TAB.ER.24H PO SCH (09:00)
[2016-03-15] MEDS: CHLORHEXIDINE GLUCONATE 15 ML CUP MUCOUS MEM SCH (09:00)
[2016-03-15] MEDS: amLODIPine 5 MG TAB PO SCH (09:00)
[2016-03-15] MEDS: PANTOPRAZOLE 40 MG/10 ML VIAL IV SCH (09:01)
[2016-03-15] MEDS: PARoxetine 20 MG TAB PO SCH (09:01)
[2016-03-15] MEDS: NICOTINE 21MG/24HR PATCH TRANSDERM SCH (09:01)
--- NOTE | 2016-03-15 09:37 | XR ---
EXAMINATION TYPE: XR chest 1V portable DATE OF EXAM: 03/15/2016 6:44 AM COMPARISON: NONE INDICATION: Tube placement TECHNIQUE: Single frontal view of the chest is obtained. FINDINGS: The heart size is normal. The pulmonary vasculature is normal. There is hyperinflation. Endotracheal tube and nasogastric tube remain in position. IMPRESSION: 1. Catheters as discussed above. 2. Hyperinflation
[2016-03-15] MEDS: LEVOFLOXACIN 500MG-D5W PMX 500 MG in DEXTROSE/WATER 1 100ML.BAG IVPB SCH (10:12)
[2016-03-15 11:58] LABS: Glucose,Whole Blood 100 mg/dL (75-99)
--- NOTE | 2016-03-15 12:34 | P.PN ---
Subjective Patient was extubated today. She is currently on BiPAP. She is alert and following simple commands. Objective - Vital Signs Vital signs: Vital Signs Temp 98.0 F 03/15/16 08:00 Pulse 93 03/15/16 11:35 Resp 27 H 03/15/16 11:00 BP 112/62 03/12/16 16:00 Pulse Ox 96 03/15/16 11:00 Intake & Output 03/14/16 03/15/16 03/15/16 18:59 06:59 18:59 Intake Total 8291.090 5294.939 758.760 Output Total 535 810 320 Balance 684.526 8353.939 438.760 Weight 51.5 kg 52.6 kg Intake: IV 300 100 Sodium Chloride 0.9% 1, 300 100 000 ml @ 100 mls/hr IV . Q10H [facility] Rx#:[id number] Intake, IV Titration 704.630 8546.939 641.760 Amount Levofloxacin 500Mg-D5w 100 100 Pmx 500 mg In Dextrose/ Water 1 100ml.bag @ 100 mls/hr IVPB Q24H [facility] Rx#: [id number] Propofol 500 mg In Empty 115.743 104.939 41.760 Bag 1 bag @ Titrate IV . Q0M [facility] Rx#:[id number] Sodium Chloride 0.9% 1, 1100 500 000 ml @ 100 mls/hr IV . Q10H [facility] Rx#:[id number] Sodium Chloride 0.9% 1, 230 000 ml @ 20 mls/hr IV . Q24H [facility] Rx#:[id number] Tube Feeding 319 464 87 Other 90 120 30 Output: Urine 535 810 320 Other: Voiding Method Indwelling Catheter Indwelling Catheter Indwelling Catheter # Bowel Movements 1 ABP, PAP, CO, CI - Last Documented Arterial Blood Pressure 160/73 - Labs CBC & Chem 7: 03/15/16 04:45 03/15/16 04:45 Labs: Abnormal Lab Results - Last 24 Hours (Table) 03/14/16 03/15/16 03/15/16 Range/Units 18:21 01:17 04:45 WBC 12.1 H (3.8-10.6) k/uL RBC 3.51 L (3.80-5.40) m/uL Hgb 10.9 L (11.4-16.0) gm/dL Neutrophils # 11.3 H (1.3-7.7) k/uL Lymphocytes # 0.3 L (1.0-4.8) k/uL ABG pCO2 (35-45) mmHg ABG pO2 (83-108) mmHg ABG HCO3 (21-25) mmol/L ABG Total CO2 (19-24) mmol/L ABG O2 Saturation (94-97) % Chloride (98-107) mmol/L Carbon Dioxide (22-30) mmol/L BUN (7-17) mg/dL Glucose (74-99) mg/dL POC Glucose (mg/dL) 137 H 151 H (75-99) mg/dL 03/15/16 03/15/16 03/15/16 Range/Units 04:45 06:14 08:25 WBC (3.8-10.6) k/uL RBC (3.80-5.40) m/uL Hgb (11.4-16.0) gm/dL Neutrophils # (1.3-7.7) k/uL Lymphocytes # (1.0-4.8) k/uL ABG pCO2 54 H (35-45) mmHg ABG pO2 131 H (83-108) mmHg ABG HCO3 35 H (21-25) mmol/L ABG Total CO2 37 H (19-24) mmol/L ABG O2 Saturation 99.0 H (94-97) % Chloride 97 L (98-107) mmol/L Carbon Dioxide 37 H (22-30) mmol/L BUN 31 H (7-17) mg/dL Glucose 127 H (74-99) mg/dL POC Glucose (mg/dL) 130 H (75-99) mg/dL 03/15/16 Range/Units 11:56 WBC (3.8-10.6) k/uL RBC (3.80-5.40) m/uL Hgb (11.4-16.0) gm/dL Neutrophils # (1.3-7.7) k/uL Lymphocytes # (1.0-4.8) k/uL ABG pCO2 (35-45) mmHg ABG pO2 (83-108) mmHg ABG HCO3 (21-25) mmol/L ABG Total CO2 (19-24) mmol/L ABG O2 Saturation (94-97) % Chloride (98-107) mmol/L Carbon Dioxide (22-30) mmol/L BUN (7-17) mg/dL Glucose (74-99) mg/dL POC Glucose (mg/dL) 100 H (75-99) mg/dL Microbiology - Last 24 Hours (Table) 03/12/16 01:50 Gram Stain - Final Sputum Sputum Culture - Final Corynebacterium species Assessment and Plan Plan: 1. Acute respiratory failure likely secondary to her COPD exacerbation. Patient did require to be intubated and placed on mechanical ventilation. 2. Acute COPD exacerbation: Continue nebulizer treatments and IV Solu-Medrol and continue Pulmicort. Pulmonary service following 3. Acute tracheobronchitis started on Levaquin. No evidence of pneumonia on chest x-ray 4. Elevated d-dimer on admission CT of the chest completed and negative for PE 5. Questionable atrial fibrillation in the emergency room. Seen evaluated by cardiology. There's been no documentation or evidence of atrial fibrillation. Continue telemetry monitoring. 6. Known history of abdominal aortic aneurysm there is a slight increase in size noted on CTA of the chest from 3.6 cm to 4.4 cm. Evaluated by vascular surgery and patient not a surgical candidate. 7. Nicotine dependence discussed smoking cessation for approximately 5 minutes. Continue nicotine patch 8. Hyponatremia present on admission. His has resolved 9. Hyperkalemia: Resolved after Kayexalate. Lisinopril remains on hold. 10. DVT prophylaxis heparin and GI prophylaxis Protonix Patient was extubated this morning with plan to do not re-intubate. She is currently on BiPAP. We will continue supportive care. Family are reasonable and agreeable to comfort measures if patient declined. Goals of care discussed with the brain wave technician.
[2016-03-15 12:41] VITALS: PULSE 98; RESP 25; TEMP 97.9
[2016-03-15] MEDS ORDERED: DRY MOUTH SPRAY 44.3 SPRAY/44.3 ML SPRAY MUCOUS MEM PRN (12:47)
[2016-03-15] MEDS ORDERED: ARTIFICIAL TEARS-HYPROMELLOSE DROPS 15 ML BTL BOTH EYES PRN (12:47)
[2016-03-15] MEDS ORDERED: SCOPOLAMINE 1.5MG/72HR PATCH TRANSDERM PRN (12:47)
[2016-03-15] MEDS ORDERED: MORPHINE SULFATE 4 MG/ML SYRINGE IV PRN (12:47)
[2016-03-15] MEDS ORDERED: ACETAMINOPHEN SUPPOSITORY 650 MG SUPP RECTAL PRN (12:47)
[2016-03-15] MEDS ORDERED: MORPHINE SULFATE (100 MG/2 ML) 100 MG in SODIUM CHLORIDE 0.9% 100 ML IV SCH (13:00)
--- NOTE | 2016-03-15 13:17 | P.PN ---
Subjective Principal diagnosis: Acute hypoxic and hypercapnic respiratory failure secondary to COPD exacerbation This is a 76-year-old female, familiar to my service, I just saw her last week. Patient saw me for follow-up on her COPD, and she was doing surprisingly well at the time of her last evaluation. Patient is known to have severe end-stage COPD, she has a stage IV COPD, patient is O2 dependent, and she is prednisone responsive. She presented to the ER with mostly few days history of increased shortness of breath, cough and wheezing. CT of the chest on admission showed no evidence of pneumonia, and no evidence of pulmonary embolism. Upon admission there was a questionable brief episode of atrial fibrillation while in the ER, but no solid documentation noted on the rhythm strip while in the ER. 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 Upon my evaluation, the patient was feeling better, she was still on BiPAP, but much improved. No headaches no blurred vision no dizziness no cough no wheezing no shortness of breath no chest pain no nausea no vomiting no abdominal pain no melena and no hematemesis. No dysuria frequency or urgency. Patient was reevaluated today on 03/11/2016, she is back on BiPAP today, and apparently she had an episode of hypoxia with desaturation earlier today, and she was quite anxious. Hence the patient was given Ativan, placed on BiPAP, and I saw her shortly after this, she seemed to have responded well to the Ativan and to the BiPAP. Feeling much better, breathing easier, and she seems to be more cooperative and very oriented 3. Potassium however was noted to be high at 6.0, and I believe most likely secondary to her underlying respiratory acidosis hence I recommended one dose of Kayexalate. Patient was reevaluated today on 03/12/2016, apparently last night, patient took a downhill course and she developed what seemed to be a picture of worsening hypoxic and hypercapnic respiratory failure. Patient was not responding to BiPAP, and she was getting extremely agitated, and she was in severe respiratory distress. I was notified about the patient, hence I recommended immediate intubation and transferred to the ICU. Patient is now in the intensive care unit, on assist control mechanical mode of ventilation, she is on a tidal volume of 300, FiO2 is 40%, and assist control rate of 10. Chest x- ray showed endotracheal tube to be in adequate position, nasogastric tube is also on the proper position, and her chest x-ray showed chronic lung changes. Labs were reviewed and her ABG showed a pO2 of 133 pCO2 of 58 pH of 7.44. Basic metabolic profile is normal, bicarb as expected is 41. Patient will have nutritional support today, and we'll start feeding via nasogastric tube. Patient was reevaluated today on 03/13/2016, remains on assist control mode of mechanical ventilation, patient is sedated, I have attempted today a trial of weaning, however as we went down on the propofol, patient was getting extremely agitated, restless, and clearly not quite ready for weaning at this point. ABG showed a pO2 of 115 pCO2 of 57 pH of 7.43. Her bicarb is 40. Potassium is 4.5 today. Chest x-ray showing COPD, and minimal areas of Strand atelectasis or scarring. No evidence of infiltrate noted on the chest x-ray. Patient has been hemodynamically stable, and I felt today would be a good day to wake of the patient, and give her a weaning trial. But clearly she is not quite ready for weaning at this point. Patient was reevaluated today on 03/14/2016, I switched her today to a trial of pressure support and IMV mode of mechanical ventilation, and as the sedation was wearing off, patient was getting extremely tachycardic, tachypneic, and clearly failed a trial although she was still on IMV of 8, and a pressure support of 12. Hence I had to place her back on propofol drip. And I kept her on IMV of 8 and pressure support of 12, hoping to get her pCO2 adjusted to where her baseline is. Chest x-ray is relatively unchanged, her labs are noted , ABG today on pressure support and IMV showed a pO2 of 111 pCO2 of 50 to pH of 7.45. Patient seems to be metabolically alkalotic, hence I will cautiously hydrate the patient. And may even use Diamox if I need to diurese the patient. But at this point I believe the patient is clinically dehydrated, and she would benefit from extra fluids which I will order today. Renal functioning seems normal. Patient was reevaluated today on 03/15/2016, I had a long discussion with her family at bedside. They are very well aware that the patient is going to be extremely difficult to wean, and multiple attempts over the last few days have failed. Patient was placed already on IMV rate of 4, pressure support of 12, and remains on FiO2 of 30%. Patient remains on a bit of sedation, and today we talked about different plans family seems to be inclined to consider comfort care measures. Definitely the option of tracheostomy is not to be considered by family. Her family members would like her to be comfortable, and not in any distress, they are very well aware of her quality of life with her COPD is quite poor. Hence today we discussed the option of extubation and comfort care measures, we also discussed option of extubating the patient to BiPAP, giving her a chance on BiPAP, and if she fails then we would proceed with comfort care measures. Family seems to like this option, and the patient is to be extubated to BiPAP, and not to be reintubated if she fails. She will be made comfort care at that point. ABG today showed a pO2 of 131 pCO2 of 54 and pH of 7.43. CBC was relatively unremarkable. Basic metabolic profile is unremarkable, bicarb is 37. Chest x- ray was also reviewed, mostly significant for COPD. Objective - Vital Signs Vital signs: Vital Signs Temp 97.9 F 03/15/16 12:00 Pulse 98 03/15/16 12:00 Resp 25 H 03/15/16 12:00 BP 112/62 03/12/16 16:00 Pulse Ox 95 03/15/16 12:00 Intake & Output 03/14/16 03/15/16 03/15/16 18:59 06:59 18:59 Intake Total 5118.478 9169.939 858.760 Output Total 535 810 350 Balance 304.978 1739.939 508.760 Weight 51.5 kg 52.6 kg Intake: IV 300 100 Sodium Chloride 0.9% 1, 300 100 000 ml @ 100 mls/hr IV . Q10H [facility] Rx#:[id number] Intake, IV Titration 728.626 9667.939 741.760 Amount Levofloxacin 500Mg-D5w 100 100 Pmx 500 mg In Dextrose/ Water 1 100ml.bag @ 100 mls/hr IVPB Q24H [facility] Rx#: [id number] Propofol 500 mg In Empty 115.743 104.939 41.760 Bag 1 bag @ Titrate IV . Q0M [facility] Rx#:[id number] Sodium Chloride 0.9% 1, 1100 600 000 ml @ 100 mls/hr IV . Q10H [facility] Rx#:[id number] Sodium Chloride 0.9% 1, 230 000 ml @ 20 mls/hr IV . Q24H [facility] Rx#:[id number] Tube Feeding 319 464 87 Other 90 120 30 Output: Urine 535 810 350 Other: Voiding Method Indwelling Catheter Indwelling Catheter Indwelling Catheter # Bowel Movements 1 ABP, PAP, CO, CI - Last Documented Arterial Blood Pressure 155/67 - Exam HEENT:[Neck is supple.] [No neck masses.] [No thyromegaly.] [No JVD.] Endotracheal tube and nasogastric tube are intact. Chest: [Diminished breath sound bilaterally no crackles or rhonchi or wheezes.] Cardiac Exam: [Normal S1 and S2, no S3 gallop, no murmur.] Abdomen: [Soft, nontender, no megaly, no rebound, no guarding, normal bowel sounds.] Extremities: [No clubbing, no edema, no cyanosis.] Neurological Exam: [Cannot be assessed, patient is sedated on propofol. - Labs CBC & Chem 7: 03/15/16 04:45 03/15/16 04:45 Labs: Abnormal Lab Results - Last 24 Hours (Table) 03/14/16 03/15/16 03/15/16 Range/Units 18:21 01: 04:45 WBC 12.1 H (3.8-10.6) k/uL RBC 3.51 L (3.80-5.40) m/uL Hgb 10.9 L (11.4-16.0) gm/dL Neutrophils # 11.3 H (1.3-7.7) k/uL Lymphocytes # 0.3 L (1.0-4.8) k/uL ABG pCO2 (35-45) mmHg ABG pO2 (83-108) mmHg ABG HCO3 (21-25) mmol/L ABG Total CO2 (19-24) mmol/L ABG O2 Saturation (94-97) % Chloride (98-107) mmol/L Carbon Dioxide (22-30) mmol/L BUN (7-17) mg/dL Glucose (74-99) mg/dL POC Glucose (mg/dL) 137 H 151 H (75-99) mg/dL 03/15/16 03/15/16 03/15/16 Range/Units 04:45 06:14 08:25 WBC (3.8-10.6) k/uL RBC (3.80-5.40) m/uL Hgb (11.4-16.0) gm/dL Neutrophils # (1.3-7.7) k/uL Lymphocytes # (1.0-4.8) k/uL ABG pCO2 54 H (35-45) mmHg ABG pO2 131 H (83-108) mmHg ABG HCO3 35 H (21-25) mmol/L ABG Total CO2 37 H (19-24) mmol/L ABG O2 Saturation 99.0 H (94-97) % Chloride 97 L (98-107) mmol/L Carbon Dioxide 37 H (22-30) mmol/L BUN 31 H (7-17) mg/dL Glucose 127 H (74-99) mg/dL POC Glucose (mg/dL) 130 H (75-99) mg/dL 03/15/16 Range/Units 11:56 WBC (3.8-10.6) k/uL RBC (3.80-5.40) m/uL Hgb (11.4-16.0) gm/dL Neutrophils # (1.3-7.7) k/uL Lymphocytes # (1.0-4.8) k/uL ABG pCO2 (35-45) mmHg ABG pO2 (83-108) mmHg ABG HCO3 (21-25) mmol/L ABG Total CO2 (19-24) mmol/L ABG O2 Saturation (94-97) % Chloride (98-107) mmol/L Carbon Dioxide (22-30) mmol/L BUN (7-17) mg/dL Glucose (74-99) mg/dL POC Glucose (mg/dL) 100 H (75-99) mg/dL Microbiology - Last 24 Hours (Table) 03/12/16 01:50 Gram Stain - Final Sputum Sputum Culture - Final Corynebacterium species Assessment and Plan Plan: Impression: Acute on chronic hypoxic and hypercapnic respiratory failure, failed BiPAP, patient is now on mechanical ventilation. Presently IMV and pressure support mode of mechanical ventilation, failed a trial of sedation holiday, patient became extremely agitated and restless even when the propofol dose was discontinued. Hence the patient is back on propofol and we'll adjust accordingly. Discussed her failed weaning with the family at bedside, and again the issue of tracheostomy was brought up, and the patient had previously expressed wishes as not to have tracheostomy. Discussed with the family different options, and the family would like her to be extubated to BiPAP, and if he fails to proceed with comfort care measures. Will follow the family's wishes. Patient will remain DO NOT RESUSCITATE. Multiple comorbidities including history of hypertension, hyperlipidemia, tobacco dependence syndrome, questionable brief episode of atrial fibrillation. Recommendation: As above, patient will be switched to BiPAP, and will decide depending on how she does with her to go with comfort care measures are continue BiPAP. Time with Patient: Greater than 30
--- NOTE | 2016-05-12 12:56 | P.DS ---
Providers Date of admission: 03/10/16 00:43 Expected date of discharge: 05/12/16 Attending physician: Faby Arana Consults: 03/10/16 00:45 Consult Physician Stat Consulting Provider: Alber Gomez Consult Reason/Comments: Severe COPD Do you want consulting provider notified?: Yes Consult Physician Stat Consulting Provider: Amanda Ewing Consult Reason/Comments: New onset A. fib? Do you want consulting provider notified?: Yes 03/10/16 13:58 Consult Physician Routine Consulting Provider: Avinash Chand Consult Reason/Comments: AAA increasing in size Do you want consulting provider notified?: Yes Primary care physician: Yulissa Pabon Hospital Course: Discharge diagnosis Preliminary cause of : Acute hypoxic and hypercapnic respiratory failure 1. Acute hypoxic and hypercapnic respiratory failure likely secondary to her COPD exacerbation. Patient did require to be intubated and placed on mechanical ventilation. 2. Acute COPD exacerbation: Continue nebulizer treatments and IV Solu-Medrol and continue Pulmicort. Pulmonary service following 3. Acute tracheobronchitis started on Levaquin. No evidence of pneumonia on chest x-ray 4. Elevated d-dimer on admission CT of the chest completed and negative for PE 5. Questionable atrial fibrillation in the emergency room. Seen evaluated by cardiology. There's been no documentation or evidence of atrial fibrillation. Continue telemetry monitoring. 6. Known history of abdominal aortic aneurysm there is a slight increase in size noted on CTA of the chest from 3.6 cm to 4.4 cm. Evaluated by vascular surgery and patient not a surgical candidate. 7. Nicotine dependence discussed smoking cessation for approximately 5 minutes. Continue nicotine patch 8. Hyponatremia present on admission. His has resolved 9. Hyperkalemia: Resolved after Kayexalate. Lisinopril remains on hold. Hospital course This is a 76-year-old female with a known past medical history of hypertension, nicotine dependence, COPD, sleep apnea and she does not wear her CPAP. She presents to the hospital worsening shortness of breath. Patient did receive Ativan and was placed on BiPAP. She's currently on the telemetry floor. There was concerns of a possible episode of atrial fibrillation while in the emergency room. Cardiology was consulted. There is no documentation of this. Patient is remained in normal sinus rhythm. EKG on admission and showed normal sinus rhythm with nonspecific ST-T wave changes and rhythm strips have been normal sinus rhythm. Cardiology had reviewed all of these. Chest x-ray on admission and showed a small right pleural effusion and COPD. CTA of the chest revealed emphysema with no evidence of pulmonary embolism. Pulmonary her biotic changes are noted. And there is abdominal aortic aneurysm that has increased in size from 3.6 cm to 4.4 cm. Patient remains on BiPAP. Patient's breathing and oxygen saturation worsened. She required transfer to the ICU and placed on mechanical ventilation. Pulmonary have follow-up closely. Patient was difficult to wean. Family did not want to proceed with a tracheostomy. Patient was extubated on 03/15/2016 for a BiPAP trial. And if she failed that they would proceed with comfort care measures. Overall patient's condition did worsen she did not tolerate the BiPAP. She was placed on comfort care and hospice consulted. Patient did pass away on 03/15/2016. Please refer to chart for further details. Patient Condition at Discharge: Undetermined Plan - Discharge Summary Discharge Medication List Atorvastatin [Lipitor] 10 mg PO HS 06/24/13 [History] Omeprazole [PriLOSEC] 20 mg PO [id number] 06/24/13 [History] LORazepam [Ativan] 0.5 mg PO BID PRN 04/20/14 [History] Ipratropium-Albuterol Nebulize [Duoneb 0.5 mg-3 mg/3 ml Soln] 3 ml INHALATION RT -QID PRN #100 ampul.neb 09/06/14 [Rx] Albuterol Sulfate [Proair Hfa] 2 puff INHALATION RT-Q6H PRN 01/18/15 [History] Lisinopril [Zestril] 10 mg PO DAILY 01/18/15 [History] Metoprolol Succinate [Toprol XL] 25 mg PO DAILY 01/18/15 [History] PARoxetine HCL [Paxil] 20 mg PO DAILY 01/18/15 [History] Follow up Appointment(s)/Referral(s): Yulissa Pabon DO [Primary Care Provider] - 1-2 days Discharge Disposition: - Preliminary Cause of Preliminary Cause of : Acute hypoxic respiratory failure
== END 2016-03-15 19:15 | disposition expired | DRG 208 ==
LOC: EC 21:50 → 6SEL 03-10 00:43 → 6ICU 03-11 23:50
PROVIDERS: ADMIT Internal Medicine; ATTEND Internal Medicine
PROC: 5A1945Z Respiratory Ventilation, 24-96 Consecutive Hours (ICD-10-PCS; principal; 2016-03-12)
PROC: 0BH17EZ Insertion of Endotracheal Airway into Trachea, Via Natural or Artificial Opening (ICD-10-PCS; 2016-03-12)
PROC: 0D9670Z Drainage of Stomach with Drainage Device, Via Natural or Artificial Opening (ICD-10-PCS; 2016-03-12)
DX: J96.21 Acute and chronic respiratory failure with hypoxia (principal); E87.4 Mixed disorder of acid-base balance; J44.0 Chronic obstructive pulmonary disease with (acute) lower respiratory infection; I48.92 Unspecified atrial flutter; E87.1 Hypo-osmolality and hyponatremia; J96.22 Acute and chronic respiratory failure with hypercapnia; J44.1 Chronic obstructive pulmonary disease with (acute) exacerbation; J20.9 Acute bronchitis, unspecified; I48.91 Unspecified atrial fibrillation; I11.0 Hypertensive heart disease with heart failure; E86.0 Dehydration; I71.2 Thoracic aortic aneurysm, without rupture; I50.9 Heart failure, unspecified; E87.5 Hyperkalemia; I10 Essential (primary) hypertension; E78.5 Hyperlipidemia, unspecified; F17.200 Nicotine dependence, unspecified, uncomplicated; G47.30 Sleep apnea, unspecified; I73.9 Peripheral vascular disease, unspecified; J45.909 Unspecified asthma, uncomplicated; K21.9 Gastro-esophageal reflux disease without esophagitis; M19.90 Unspecified osteoarthritis, unspecified site; M81.0 Age-related osteoporosis without current pathological fracture; K58.9 Irritable bowel syndrome, unspecified; Z51.5 Encounter for palliative care; Z66 Do not resuscitate; F41.9 Anxiety disorder, unspecified; Z82.49 Family history of ischemic heart disease and other diseases of the circulatory system; Z99.81 Dependence on supplemental oxygen; Z85.51 Personal history of malignant neoplasm of bladder; Z87.01 Personal history of pneumonia (recurrent); Z87.898 Personal history of other specified conditions; Z98.42 Cataract extraction status, left eye; Z98.41 Cataract extraction status, right eye; Z79.899 Other long term (current) drug therapy; I71.4 Abdominal aortic aneurysm, without rupture
CPT/HCPCS: 31500; 36415; 36600; 36620; 71010; 71275; 80048; 80053; 81003; 82550; 82553; 82805; 83735; 84100; 84132; 84484; 85025; 85379; 85610; 85730; 87070; 87205; 93005; 93306; 94002; 94003; 94640; 94644; 94660; 96361; 96365; 96372; 96375; 96376; 99291